=== PATIENT | female | born 1970 | race Caucasian/White ===

== ENCOUNTER → 2020-07-11 16:44 | Outpatient (CLI) | payer MEDICAID, SELFPAY ==
[2020-05-15 11:42] VITALS: BMI 37.1
[2020-07-11 18:37] LABS: Amphetamine Urine VISTA POSITIVE (<1000 ng/mL); Barbiturate Urine VISTA NEGATIVE (< 200 ng/mL); Benzodiazepine Urine VISTA NEGATIVE (< 200 ng/mL); Cocaine Urine VISTA NEGATIVE (< 300 ng/mL); Ecstacy Urine VISTA POSITIVE (< 500 ng/mL); Methadone Urine VISTA NEGATIVE (< 300 ng/mL); PCP Urine VISTA NEGATIVE (< 25 ng/mL); THC Urine VISTA NEGATIVE (< 50 ng/mL); Vista UDS pH Range 5
== END ==
PROVIDERS: PCP Student in an Organized Health Care Education/Training Program; Referring Provider Anesthesiology Pain Medicine; Visit Provider Anesthesiology Pain Medicine
DX: F11.20 Opioid dependence, uncomplicated (principal)
CPT/HCPCS: 80307

== ENCOUNTER → 2020-07-20 07:16 | Outpatient (CLI) | payer MEDICAID, SELFPAY ==
[2020-05-15 11:42] VITALS: BMI 37.1
--- NOTE | 2020-07-20 07:18 | MRI_ITS ---
STUDY: MRI LUMBAR SPINE WITHOUT CONTRAST REASON FOR EXAM: Female, 50 years old. Low back pain. TECHNIQUE: Standardized fat and water weighted pulse sequences were obtained in the sagittal and axial planes. COMPARISON: X-ray dated 07/03/2020 FINDINGS: Normal lumbar lordosis. There is mild levoscoliosis. Normal conus medullaris that terminates at the L1. L1-2: There is mild disc space narrowing and endplates spondylosis. There is mild disc bulge with small right paracentral protrusion without significant central canal or foraminal stenosis. L2-3: There is severe disc space narrowing and endplates spondylosis. Mild disc osteophyte complex and facet arthropathy asymmetric to the right with mild right foraminal stenosis. Mild central canal and minimal left foraminal stenosis. L3-4: There is mild disc space narrowing and endplates spondylosis. Mild disc bulge and moderate facet arthropathy without significant central canal or foraminal stenosis. L4-5: There is moderate disc space narrowing and endplates spondylosis. Moderate disc osteophyte complex and facet arthropathy asymmetric to the left with moderate left foraminal stenosis. Mild central canal and mild right foraminal stenosis. L5-S1: There is severe disc space narrowing and endplates spondylosis. Moderate disc osteophyte complex and mild facet arthropathy without significant central canal stenosis. Mild right and mild left foraminal stenosis. Normal visualized sacral ala. MRI/Spine Lumbar (Routine) IMPRESSION: L1/L2: Small right disc protrusion without significant central canal or foraminal stenosis. L4/L5: Moderate left foraminal stenosis. Electronically Signed: Kin French MD at 15:59 EST Tel , Service support ,
== END ==
PROVIDERS: PCP Student in an Organized Health Care Education/Training Program; Referring Provider Orthopaedic Surgery; Visit Provider Orthopaedic Surgery
DX: M54.16 Radiculopathy, lumbar region (principal); M48.061 Spinal stenosis, lumbar region without neurogenic claudication; M51.26 Other intervertebral disc displacement, lumbar region
CPT/HCPCS: 72148

== ENCOUNTER 2021-06-26 10:48 | Outpatient (CLI) | payer MEDICAID, SELFPAY ==
--- NOTE | 2021-06-26 10:50 | RAD_ITS ---
STUDY: X-RAY - LEFT SHOULDER REASON FOR EXAM: Female, 51 years old. pain TECHNIQUE: 5 view(s) of the shoulder. COMPARISON: None. FINDINGS: Normal glenohumeral articulation. Normal acromioclavicular joint. Normal acromion. Normal humeral head and visualized proximal humerus. There is periarticular soft tissue calcification consistent with a calcific tendinitis. Normal visualized pulmonary apex. RAD/Shoulder min 2 Views IMPRESSION: Hydroxyapatite deposition disease (calcific tendinitis) cyst. Electronically Signed: Clement Darling MD at 13:49 EST ,
== END 2021-06-26 23:59 | disposition short-term general hospital (02) ==
LOC: MTRAD 10:49
PROVIDERS: PCP Student in an Organized Health Care Education/Training Program; Referring Provider Physician Assistant; Visit Provider Physician Assistant
DX: M75.32 Calcific tendinitis of left shoulder (principal)
CPT/HCPCS: 73030

== ENCOUNTER 2021-08-11 14:33 | Outpatient (CLI) | payer MEDICAID, SELFPAY ==
[2021-08-11 18:10] LABS: CRP 5.92 mg/L (0.0-3.0); Rheumatoid Factor < 10.0 IU/mL (<15)
[2021-08-12 10:07] LABS: Erythrocyte Sedimentation Rate 46 mm/hr (0-30)
[2021-08-12 10:08] LABS: Absolute Lymphocyte Count 2.66 X10^3/uL (0.83-4.51); Absolute Neutrophil Count 7.6 X10^3/uL (2.0-7.7); Basophil# 0.05 X10^3/uL; Basophil% 0.4 % (0-1); Eosinophil# 0.25 X10^3/uL; Eosinophils% 2.2 % (0-5); Hematocrit 42.9 % (37-47); Hemoglobin 14.1 g/dL (12.0-15.0); Lymphocyte # 2.66 X10^3/ul (0.83-4.51); Lymphocyte % 23.5 % (19-41); Mean Corp Hgb Conc 32.9 g/dL (32-36); Mean Corpuscular Volume 88.1 fL (81-99); Mean Platelet Vol. 11.1 fl (6.2-12.0); Monocyte# 0.73 X10^3/uL; Monocyte% 6.5 % (0-10); NRBC Flagged by Analyzer 0 % (0-5); Neutrophil # 7.59 X10^3/uL (2.7-7.7); Neutrophil % 67.1 % (47-70); Platelet Count 433 K/mm3 (150-450); RBC Distribution Width CV 13.1 % (11.6-14.6); RBC Distribution Width SD 42.2 fl (35.1-43.9); Red Blood Count 4.87 M/mm3 (4.2-5.4); White Blood Count 11.3 K/mm3 (4.4-11.0)
[2021-08-13 16:12] LABS: ANTINUCLEAR ANTIBODIES DIRECT Negative (Negative)
[2021-08-14 08:22] LABS: CCP IgG Antibodies 9 units (0-19)
== END 2021-08-11 23:59 | disposition home or self-care (01) ==
LOC: MTLAB 14:34
PROVIDERS: PCP Student in an Organized Health Care Education/Training Program; Referring Provider Physician Assistant; Visit Provider Physician Assistant
DX: M75.32 Calcific tendinitis of left shoulder (principal); M25.512 Pain in left shoulder
CPT/HCPCS: 36415; 85025; 85652; 86038; 86140; 86200; 86431

== ENCOUNTER 2021-10-16 11:50 | Day surgery (SDC) | payer MEDICAID, SELFPAY ==
[2021-10-16] VITALS (7 sets, daily range): BP systolic 104–135; BP diastolic 70–88; PULSE 89–108; RESP 16–18; TEMP 36.1–37.1; O2SAT 96–100; BMI 37.0
[2021-10-16 12:15] LABS: Internal QC Validated? YES +Cl - CLEAR BKGD
[2021-10-16 12:18] LABS: Pregnancy, Urine Negative Negative
[2021-10-16 12:34] LABS: Hematocrit 42.2 % (37-47); Hemoglobin 13.4 g/dL (12.0-15.0); Mean Corp Hgb Conc 31.8 g/dL (32-36); Mean Corpuscular Hgb 28.2 pg (27.0-32.0); Mean Corpuscular Volume 88.7 fL (81-99); Mean Platelet Vol. 9.1 fl (6.2-12.0); Platelet Count 471 K/mm3 (150-450); RBC Distribution Width SD 42.3 fl (35.1-43.9); Red Blood Count 4.76 M/mm3 (4.2-5.4); White Blood Count 9.8 K/mm3 (4.4-11.0)
[2021-10-16] MEDS: Lactated Ringers 1,000 ML 15 ML IV (12:41)
--- NOTE | 2021-10-16 12:50 | EMB_PTH ---
PATIENT: FLO GERARD LOC: [facility] – [place] U#:[id number] AGE/SX: 51/F ROOM: RE10/16/[address]: Dr. Blanche Flores DO : 1970 BED: DIS: 10/16/2021 SPEC #: [id number] RECD: 10/16/21 15:01 STATUS: GEORGETTE DAVE #: [id number] NURIA: 10/16/21 12:[address]: Blanche Flores DEPT: SURGICAL PATHOLOGY RECD BY: Tony Pruett ENTERED: 10/17/21 07:59 SP TYPE: ENDOM BX/C OT DR: Dr. Donavan Lopes DO Tissues: A - Uterine cervix, NOS B - Endometrium, NOS Procedures: Surgery Specimen Level IV HEADER OPERATION: Cervical cone knife conization with endocervical curettage PRE-OP DIAGNOSIS: High-grade cervical dysplasia TISSUE SUBMITTED: A ? Cervical biopsy, tagged at 12 o?clock, B ? Endocervical curettings MICROSCOPIC DIAGNOSIS A. Cervix, cone biopsy: Focal minimal changes suspicious for HPV cytopathic effects. Resection margins are free of dysplastic changes. B. Endocervical curettings: Scant fragments of benign endocervical epithelium with focal decidual changes, negative for dysplasia. SJ:rg 10/20/2021 COMMENT Clinical correlation and appropriate follow up are necessary. Case has been reviewed in consultation with Dr. Casillas who concurs with the above diagnosis. IDC:AM MICROSCOPIC DESCRIPTION Slides are reviewed. GROSS DESCRIPTION A - Received in fixative is one container labeled with the patient's name and designated cervix biopsy, tagged at 12 o'clock. The specimen consists of a C-shaped fragment of mucosa measuring 2.5 x 2 x 0.6 cm. The specimen is inked as follows: 12 to 3 o'clock - yellow, 3 to 6 o'clock - green and 6 to 9 o'clock - blue. The specimen is serially sectioned and totally submitted in two cassettes. B - Received in fixative is one container labeled with the patient's name and designated endocervical curettings. The specimen consists of multiple irregular and mucoid fragments of light bolivar tissue that in aggregate measure 1 x 0.5 x <0.1 cm. The specimen is totally submitted in one cassette. / AM:abimael 10/17/2021 TC:5 CPT: 07451 x2
[2021-10-16] MEDS: Iodine/Potassium Iodide 14ML Bottle 1 DRP TOPICAL (13:33)
[2021-10-16] MEDS: Lidocaine 1% /Epi 1:100 (20ml) 20 ML Vial (13:57)
[2021-10-16] MEDS: FERRIC SUBSULFATE 8 GM SOLN (14:11)
--- NOTE | 2021-10-16 14:37 | PCM.DC ---
Discharge Instructions Diet Discharge Diet: No restrictions Activity Discharge Activity: May Not Drive (for 24 hours after surgery) May resume sexual activity in: 4 weeks (no intercourse, tampons, hot tubs, baths, or pools for 4 weeks) Weight Bearing Status: Weight bearing as tolerated Lifting Restrictions: none Dressing / Incision Call your doctor if you observe: Fever of 101 or Higher, Coldness, Increased Pain, Numbness or Tingling, Change in Color, Inability to urinate, Inability to have a bowel movement, Using more than 1 pad per hour, Shortness of breath, Dizziness, Fainting spells, Swelling in the ankles, Chest pain, Increased palpitations (irregular heartbeat), Calf discomfort and Uncontrolled pain Additional Dressing/Incision Instructions:: You will have cramping and vaginal bleeding. You will notice black-brown thick pieces of discharge and that is normal. Take Tylenol and Ibuprofen as needed for pain. Use a heating pad as needed. Follow Up Care Please Follow Up With: Blanche Flores DO When: 1 week Test Results: Test results from this visit will be discussed in further detail at your follow-up appointment, if applicable. Discharge Plan Admission Primary Reason for Your Visit: surgery Attending Provider: Blanche Flores Primary Care Provider: Donavan Lopes Discharge Orders/Prescriptions Prescriptions: Continued bupropion HCl 300 mg tablet extended release 24 hr 300 mg PO QAM RF: 0 lorazepam 0.5 mg tablet 1 mg PO DAILY PRN (Reason: Anxiety) RF: 0 dextroamphetamine-amphetamine 30 mg capsule,extended release 24hr 30 mg PO DAILY RF: 0 spironolactone 50 mg tablet 50 mg PO BID RF: 0 duloxetine 60 mg capsule,delayed release(DR/EC) 60 mg PO DAILY RF: 0 topiramate 25 mg tablet 25 mg PO BID RF: 0 pantoprazole 40 mg tablet,delayed release (DR/EC) 40 mg PO BID RF: 0 cholecalciferol (vitamin D3) [Vitamin D3] 125 mcg (5,000 unit) Tablet 125 mcg PO DAILY RF: 0 Referrals / Follow Up: Donavan Lopes DO [Primary Care Provider] - Disposition Disposition (needs filled in before D/C Order can be placed): Home, Self Care
--- NOTE | 2021-10-16 14:53 | OP.PCM_ITS ---
Problems Associated Problem List Diagnoses (1) High grade squamous intraepithelial cervical dysplasia: (2) Positive test for human papillomavirus (HPV): Report of Operation Date of Procedure: 10/16/21 Pre-Operative Diagnosis: CIN2 Post-Operative Diagnosis: CIN2 Surgery/Procedure Performed:: Cervical cold knife conization and endocervical curettings Description of Surgical Findings:: Normal appearing cervix. Uterus anteverted. Minimal descent of uterus and cervix Surgeon: Blanche Flores Type of Anesthesia: MAC Special Medications: Surgicel Specimen's removed: Cervical cone biopsy and endocervical curettings Drains: None Estimated Blood Loss (mL): 50 Fluids Replaced: 1000 cc Description of Procedure: Indications: Pt is done childbearing and colposcopy shows CIN2. She desires treatment. She also requests to leave IUD in place and understands the strings will likely be shortened and subsequently lost, and that can make IUD removal later more difficult Procedure: The patient was taken to the operating room where MAC anesthesia was found to be adequate. She was prepped and draped in the dorsal lithotomy position using yellowfin stirrups. A weighted speculum was placed in the vagina to expose the cervix. A single-tooth tenaculum was placed on the anterior lip of the cervix for traction. Angle stitches of 0 Vicryl sutures were placed at the 3:00 and 9 o'clock position in the lateral vaginal fornices. The cervix was stained with Lugol's iodine solution. A scalpel was then used to excise a cone- shaped biopsy circumferentially around the cervical os. The specimen was removed intact and marked at the 12 o'clock position with a suture. A curette was used to obtain endocervical curettings. A rollerball was used to cauterize the cone biopsy site. A 3-0 Vicryl suture was used to place a [id number] along the posterior aspect of the cone biopsy site as it was bleeding. There was still slight bleeding noted so Surgicel was placed in the cervical cone biopsy site, as well as Monsels. Bleeding was hemostatic. Instrument, sponge, needle counts were correct and the patient was taken to the recovery room in stable condition. Grafts/Implants Used: None Procedure Start Time: 13:57 Procedure Stop Time: 14:31 Complications None Admit VTE Documentation VTE Present on Admission: No VTE Mechan Device Prophylaxis: SCD's
== END 2021-10-16 15:50 | disposition home or self-care (01) ==
LOC: SDC 11:52 → AC 11:53
PROVIDERS: PCP Student in an Organized Health Care Education/Training Program; Referring Provider Obstetrics & Gynecology; Visit Provider Obstetrics & Gynecology
PROC: 0UBC7ZZ Excision of Cervix, Via Natural or Artificial Opening (ICD-10-PCS; CPT 57522; principal; 2021-10-16 12:35)
DX: N87.1 Moderate cervical dysplasia (principal); R87.810 Cervical high risk human papillomavirus (HPV) DNA test positive; E66.9 Obesity, unspecified; K21.9 Gastro-esophageal reflux disease without esophagitis; F32.A Depression, unspecified; F41.9 Anxiety disorder, unspecified; F17.290 Nicotine dependence, other tobacco product, uncomplicated; Z97.5 Presence of (intrauterine) contraceptive device; Z68.37 Body mass index [BMI] 37.0-37.9, adult; Z79.899 Other long term (current) drug therapy
CPT/HCPCS: 57520; 00940; 81025; 85027; 86850; 86900; 86901; 88305; J7120; J2405

== ENCOUNTER → 2022-02-26 | Outpatient (CLI) | payer MEDICAID, SELFPAY ==
--- NOTE | 2022-02-26 14:25 | RAD_ITS ---
STUDY: X-RAY - LUMBAR SPINE REASON FOR EXAM: Female, 52 years old. M50.50/M51.36 TECHNIQUE: 2 view(s) of the lumbar spine were obtained. COMPARISON: 07/03/2020 FINDINGS: Normal lumbar lordosis. Similar appearance of mild levoscoliosis centered on L3-4. Slight degenerative L3-4 retrolisthesis redemonstrated. There is multilevel endplate spondylosis of the lumbar vertebrae. There is multi-level degenerative disc disease with multi-level disc space narrowing. Intrauterine device in place. RAD/Lumbar Spine 2 or 3 Views IMPRESSION: Similar lumbar spine degenerative change and levoscoliosis. Electronically Signed: Kiko Benites MD at 3:46 EDT ,
--- NOTE | 2022-02-26 14:25 | RAD_ITS ---
STUDY: X-RAY - CERVICAL SPINE REASON FOR EXAM: Female, 52 years old. M50.50/M51.36 TECHNIQUE: 3 view(s) of the cervical spine were obtained. COMPARISON: None FINDINGS: Normal anterior atlantoaxial articulation. Normal odontoid process. Decreased cervical lordosis. Grade 1 retrolisthesis of C5-6. There is narrowing of C5-6 disc space and multilevel endplate spurring. The soft tissue structures are unremarkable. RAD/Cerv Spine 2 or 3 Views IMPRESSION: Mild spondylosis most severe at C5-6. No acute fracture or other significant abnormality. Electronically Signed: Farshad Savage MD at 22:53 EDT ,
== END | disposition home or self-care (01) ==
LOC: RAD 14:18
PROVIDERS: PCP Student in an Organized Health Care Education/Training Program; Referring Provider Anesthesiology Pain Medicine; Visit Provider Anesthesiology Pain Medicine
DX: M50.30 Other cervical disc degeneration, unspecified cervical region (principal); M47.812 Spondylosis without myelopathy or radiculopathy, cervical region; M51.36 Other intervertebral disc degeneration, lumbar region
CPT/HCPCS: 72040; 72100

== ENCOUNTER → 2023-01-07 | Outpatient (CLI) | payer MEDICAID, SELFPAY ==
--- NOTE | 2023-01-07 14:34 | RAD_ITS ---
STUDY: X-RAY - CERVICAL SPINE REASON FOR EXAM: Female, 52 years old. DDD TECHNIQUE: 3 view(s) of the cervical spine were obtained. COMPARISON: None FINDINGS: Normal anterior atlantoaxial articulation. Normal odontoid process. Straightening of normal lordotic curvature possibly due to muscle spasm. No evidence for acute fracture or subluxation. Mild narrowing of C5-6 and C6-7 disc spaces. There is spurring of the anterior endplates at C3-4, C4-5 and C5-6. The soft tissue structures are unremarkable. RAD/Cerv Spine 2 or 3 Views IMPRESSION: Moderate spondylosis. No acute fracture or other significant bony pathology Electronically Signed: Farshad Savage MD at 22:58 EDT ,
== END | disposition home or self-care (01) ==
LOC: RAD 14:32
PROVIDERS: PCP Student in an Organized Health Care Education/Training Program; Referring Provider Anesthesiology Pain Medicine; Visit Provider Anesthesiology Pain Medicine
DX: M50.30 Other cervical disc degeneration, unspecified cervical region (principal); M47.812 Spondylosis without myelopathy or radiculopathy, cervical region; M48.02 Spinal stenosis, cervical region
CPT/HCPCS: 72040

== ENCOUNTER 2023-11-15 20:45 | Emergency (ER) | payer MEDICAID, SELFPAY ==
[2023-11-15 20:45] VITALS: BP 117/66; PULSE 83; RESP 16; TEMP 36.8; O2SAT 98; BMI 23.2
[2023-11-15 21:22] VITALS: BP 117/82; PULSE 81; RESP 18; TEMP 36.8; O2SAT 98
[2023-11-15 22:00] VITALS: BP 118/80; PULSE 81; RESP 18; TEMP 36.8; O2SAT 99
--- NOTE | 2023-11-15 22:13 | CT_ITS ---
EXAM: CT LEFT LOWER EXTREMITY WITH INTRAVENOUS CONTRAST CLINICAL INDICATION: infection TECHNIQUE: Helically acquired images were obtained of the left lower extremity with intravenous contrast. 2-D reformats were performed by the technologist. This CT exam was performed using one or more of the following dose reduction techniques: automated exposure control, adjustment of the mA and/or kV according to patient size, and/or use of iterative reconstruction technique. CONTRAST: 100ml Isoview 370 COMPARISON: No relevant prior studies available. FINDINGS: BONES/JOINTS: Mild hindfoot and midfoot arthrosis. Calcaneal spurs. No acute fracture. No subluxation. Normal alignment. Preservation of the joint space. SOFT TISSUES: Within the Achilles tendon and adjacent soft tissues, there is a 2.2 x 2.3 x 3.2 cm Low-attenuation peripherally enhancing fluid collection consistent with an abscess. Associated likely dystrophic calcifications may be secondary to chronic tendinopathy or other dystrophic soft tissue calcifications. Marked thickening of the more proximal Achilles tendon is present suggesting severe tendinopathy. Diffuse additional soft tissue swelling/edema suggestive of potentially cellulitis. Strandy opacities within the distal soleus and gastrocnemius suggesting myositis. No radiopaque foreign body. myositis. No radiopaque foreign body. CT/Extremity Lower WITH Contrast IMPRESSION: Abscess of the Achilles tendon and surrounding soft tissues with additional tendinopathy and likely myositis at the myotendinous junction. Additional likely cellulitis. Electronically Signed: Goyo Iqbal DO at 23:12 EDT ,
--- NOTE | 2023-11-15 22:16 | EDS_ITS ---
HPI History of Present Illness Chief Complaint: Wound Check Informant: patient Narrative Narrative: 53-year-old female presenting to the emergency room out of concern for left ankle infection. Patient states on 12 October she underwent left Achilles tendon repair with Dr. Gomez at [facility]. She states that about a week ago the stitches opened up while she was getting out of the shower and her foot went into dorsiflexion. She states that she went to see Dr. Gomez and was placed on doxycycline. She has a history of MRSA. She states that she called the office today and was referred to the wound clinic. She denies any fevers but notes swelling pain and redness to the left posterior ankle. She states that she came here tonight because she was referred to the wound clinic. She has still been wearing her boot and using crutches. [facility] Medical History Wears glasses History of Mohs micrographic surgery for skin cancer Cancer Depression Anxiety Diabetes Arthritis Fatty liver Restless legs Injury of head and neck Back pain History of ulceration History of IBS Gastric reflux Prince esophagus Vapes nicotine containing substance Smoker Shortness of breath on exertion History of pain when walking History of echocardiogram History of stress test Encounter for insertion of mirena IUD bladder sling H/O methicillin resistant Staphylococcus aureus infection Home Medications ?Medication ?Instructions ?Recorded ?Last Taken ?Type bupropion HCl 300 mg 24 hr tablet, 300 mg PO QAM 05/15/20 10/16/21 10:15 History extended release dextroamphetamine-amphetamine ER 30 mg PO DAILY 05/15/20 Unknown History 30 mg 24hr capsule,extend release duloxetine 60 mg capsule,delayed 60 mg PO DAILY 05/15/20 10/16/21 10:15 History release lorazepam 0.5 mg tablet 1 mg PO DAILY PRN Anxiety 05/15/20 10/16/21 10:15 History spironolactone 50 mg tablet 50 mg PO BID 05/15/20 10/16/21 10:15 History topiramate 25 mg tablet 25 mg PO BID 05/15/20 10/16/21 10:15 History pantoprazole 40 mg tablet,delayed 40 mg PO BID 01/09/21 10/16/21 10:15 History release cholecalciferol (vitamin D3) 125 125 mcg PO DAILY 10/14/21 Unknown History mcg (5,000 unit) tablet (Vitamin D3) lamotrigine 25 mg tablet (Lamictal) 25 mg PO DAILY 06/10/22 Unknown History gabapentin 300 mg capsule 300 mg PO 03/05/23 Unknown History oxycodone-acetaminophen 5 mg-325 1 tab PO Q6H PRN PRN Pain 3 days 11/15/23 Unknown Rx mg tablet #12 TABLETS sulfamethoxazole 800 1 tab PO BID #20 TABLETS 11/15/23 Unknown Rx mg-trimethoprim 160 mg tablet Allergy/AdvReac Type Severity Reaction Status Date / Time No Known Allergies Allergy Verified 11/15/23 20:47 Family History Mother Diabetes Father MVP (mitral valve prolapse) Grandmother Cancer Surgical History Hx of gastric bypass Hx of hernia repair Hx of esophagogastroduodenoscopy History of cholecystectomy History of tonsillectomy Social History household members: spouse and children housing: house Smoking Status: Current some day smoker tobacco type: cigarettes and smokeless tobacco what type of physical activity do you participate in: none do you feel safe at home: Yes ROS ROS ED Constitutional Constitutional ED: Denies chills, fever(s) or weight loss Eyes Eyes: Denies change in vision or diplopia ENT ENT ED: Denies ear pain, rhinorrhea or sore throat Cardiovascular Cardiovascular: Denies chest pain, orthopnea, palpitations or racing heartbeat Respiratory/Chest Respiratory/Chest: Denies cough, dyspnea or orthopnea Gastrointestinal Gastrointestinal: Denies abdominal pain, diarrhea, nausea or vomiting Genitourinary Genitourinary ED: Denies dysuria, hematuria or urinary frequency Musculoskeletal Musculoskeletal: Reports other Details: See history of present illness ; Denies arthralgias or myalgias Integumentary Denies abscess or rash Neurologic Neurologic: Denies headache(s) or weakness Psychiatric Psychiatric: Denies anxiety, depression, suicidal ideation or suicidal thoughts Endocrine Endocrinology: Denies polydipsia, polyphagia or polyuria Allergic/Immunologic Allergic/Immunologic ED: Denies mouth swelling, tongue swelling or urticaria EXAM Physical Exam Const Vital Signs: 11/15/23 20:45 11/15/23 21:22 11/15/23 22:00 Temperature 98.3 F 98.3 F 98.2 F Temperature Source Temporal Oral Oral Pulse Rate 83 81 81 Respiratory Rate 16 18 18 Blood Pressure 117/66 117/82 H 118/80 Blood Pressure Mean 83 93 92 Pulse Ox 98 98 99 Oxygen Delivery Method Room Air Room Air Room Air 11/15/23 23:00 Temperature 98.3 F Temperature Source Oral Pulse Rate 72 Respiratory Rate 16 Blood Pressure 98/59 L Blood Pressure Mean 72 Pulse Ox 98 Oxygen Delivery Method Room Air Positive well nourished and well developed General Appearance ED: well developed HEENT Reports normocephalic, head/scalp atraumatic and moist mucous membranes Eyes PERRL and EOMs intact bilaterally Neck no lymphadenopathy, supple and no JVD Resp normal respiratory effort and clear to auscultation bilaterally Cardio regular rate, regular rhythm and no murmurs GI normal to inspection, nondistended, normoactive bowel sounds and non-tender Palpation: soft Back/Spine no CVA tenderness and normal ROM Extremity Extremity Narrative: Left Achilles region demonstrates a 2.5 cm area of wound dehiscence. There is a piece of surgical stitching coming from the wound. There is surrounding erythema warmth and swelling. The calf itself is not particularly swollen or tender. There is no lymphangitic streaking. No palpable cords. The toes appear normal. General Extremety ED: Negative for edema General Extremity: Negative for edema Neuro oriented x3 and CN's II-XII intact bilaterally Sensorium / Orientation: alert Motor Exam: strength 5/5 throughout Psych mental status grossly normal Mood & Affect: Negative for depressed or tearful Skin no rashes or lesions noted and no wounds MDM MDM MDM Narrative Medical decision making narrative: Differential diagnosis includes cellulitis tendon rupture postoperative abscess seroma DVT White count 9.6 with normal differential creatinine 0.9 with a BUN of 21 liver enzymes are normal except for an alkaline phosphatase of 195. CT of the extremity with contrast was obtained which demonstrates a abscess of the Achilles tendon and adjacent soft tissue blister arises at the level of the surgical dehiscence. I spoke with her surgeon Dr. Gomez. We have changed her to Bactrim. I did give her a copy of her CT to take to the office tomorrow. Given the location of the abscess at the surgical site I am uncomfortable draining it here in the emergency department. She does not appear septic. I will give her pain medication and antibiotic here. History & Record Review Discussion w/independent historian: Patient Lab Data Attestation: I reviewed the patient's lab results. Labs: Laboratory Results - last 24 hr 11/15/23 21:30 WBC 9.6 RBC 4.02 L Hgb 11.8 L Hct 37.0 MCV 92.0 MCH 29.4 MCHC 31.9 L RDW Std Deviation 44.5 H RDW Coeff of Reinaldo 13.2 Plt Count 389 MPV 10.4 Immature Gran % (Auto) 0.300 Neut % (Auto) 54.7 Lymph % (Auto) 33.9 Parke % (Auto) 7.2 Eos % (Auto) 3.5 Baso % (Auto) 0.4 Absolute Neuts (auto) 5.2 Absolute Lymphs (auto) 3.24 Nucleated RBC % 0 Sodium 138 Potassium 4.3 Chloride 106 Carbon Dioxide 27.0 Anion Gap 5 BUN 21 H Creatinine 0.90 Estim Creat Clear Calc 69.23 Est GFR (MDRD) Af Amer 84 Est GFR (MDRD) Non-Af 70 BUN/Creatinine Ratio 23.3 H Glucose 81 Calcium 9.0 Total Bilirubin 0.20 AST 17 ALT 37 Alkaline Phosphatase 195 H Total Protein 6.8 Albumin 3.3 Globulin 3.5 Albumin/Globulin Ratio 0.9 Radiography Diagnostic Testing: Clinical Impression(s) from Imaging Studies Lower Extremity CT 11/15/23 22:13 IMPRESSION: Abscess of the Achilles tendon and surrounding soft tissues with additional tendinopathy and likely myositis at the myotendinous junction. Additional likely cellulitis. Electronically Signed: Goyo Iqbal DO at 23:12 EDT , Discharge Plan Triage Chief Complaint: Wound Check ED Provider: Obinna Beauchamp Dx/Rx/DC Orders Clinical Impression: Postoperative abscess, Acute ankle pain Instructions: ED Wound Infection after surgery Prescriptions: New sulfamethoxazole-trimethoprim 800-160 mg tablet 1 tab PO BID Qty: 20 0RF oxycodone-acetaminophen 5-325 mg tablet 1 tab PO Q6H PRN PRN (Reason: Pain) 3 Days Qty: 12 0RF No Action bupropion HCl 300 mg tablet extended release 24 hr 300 mg PO QAM lorazepam 0.5 mg tablet 1 mg PO DAILY PRN (Reason: Anxiety) Patient Comments: take 1/2 to 1 tablet by mouth once daily if needed for ANXIETY ATTACKS dextroamphetamine-amphetamine 30 mg capsule,extended release 24hr 30 mg PO DAILY Patient Comments: take 1 capsule by mouth once daily for 30 DAYS spironolactone 50 mg tablet 50 mg PO BID duloxetine 60 mg capsule,delayed release(DR/EC) 60 mg PO DAILY Patient Comments: TAKE 1 CAPSULE BY MOUTH EVERY DAY topiramate 25 mg tablet 25 mg PO BID Patient Comments: take 1 tablet by mouth twice a day pantoprazole 40 mg tablet,delayed release (DR/EC) 40 mg PO BID Patient Comments: take 1 tablet by mouth daily 1/2 HOUR BEFORE MEALS AND TAKE ON AN EMPTY STOMACH lamotrigine [Lamictal] 25 mg tablet 25 mg PO DAILY gabapentin 300 mg capsule 300 mg PO Patient Comments: take 1 capsule by mouth three times a day for 30 DAYS cholecalciferol (vitamin D3) [Vitamin D3] 125 mcg (5,000 unit) Tablet 125 mcg PO DAILY Primary Care Provider: Donavan Lopes Referrals: Donavan Lopes DO [Primary Care Provider] - Gino Gomez DPM [Med Staff - Courtesy Staff] - 1 Day Activity Restrictions/Additional Instructions: You need to call the office tomorrow. They need to see you tomorrow. Please take a copy of your disc with you. You may discontinue the doxycycline and begin Bactrim. Print Language: Fijian Disposition Disposition: Home, Self Care
[2023-11-15 22:29] LABS: Absolute Lymphocyte Count 3.24 X10^3/uL (0.83-4.51); Absolute Neutrophil Count 5.2 X10^3/uL (2.0-7.7); Basophil# 0.04 X10^3/uL; Basophil% 0.4 % (0-1); Eosinophil# 0.33 X10^3/uL; Eosinophils% 3.5 % (0-5); Hemoglobin 11.8 g/dL (12.0-15.0); Lymphocyte # 3.24 X10^3/ul (0.83-4.51); Lymphocyte % 33.9 % (19-41); Mean Corp Hgb Conc 31.9 g/dL (32-36); Mean Corpuscular Hgb 29.4 pg (27.0-32.0); Mean Platelet Vol. 10.4 fl (6.2-12.0); Monocyte# 0.69 X10^3/uL; Monocyte% 7.2 % (0-10); NRBC Flagged by Analyzer 0 % (0-5); Neutrophil # 5.23 X10^3/uL (2.7-7.7); Neutrophil % 54.7 % (47-70); Platelet Count 389 K/mm3 (150-450); RBC Distribution Width CV 13.2 % (11.6-14.6); RBC Distribution Width SD 44.5 fl (35.1-43.9); Red Blood Count 4.02 M/mm3 (4.2-5.4); White Blood Count 9.6 K/mm3 (4.4-11.0)
[2023-11-15 22:46] LABS: ALB/GLOB Ratio 0.9 RATIO (0.9-2.4); AST(SGOT) 17 U/L (15-37); Alanine Aminotransfer ALT/SGPT 37 U/L (13-56); Albumin, Serum 3.3 g/dL (3.2-5.0); Alkaline Phosphatase 195 U/L (45-117); Anion Gap 5 (5-15); BUN 21 mg/dL (7-18); BUN/Creat Ratio 23.3 RATIO (10-20); Chloride 106 mmol/L (98-107); EST Glomerular Filtration Rate 70 mL/min (>60); Est Glom Filt Rate - Afr Amer 84 mL/min (>60); Estimated Creatinine Clearance 69.23 ml/min; Globulin 3.5 g/dL (2.2-4.2); Glucose 81 mg/dL (74-106); Potassium 4.3 mmol/L (3.5-5.1); Protein, Total 6.8 g/dL (6.4-8.2); Sodium Level 138 mmol/L (136-145)
[2023-11-15 23:00] VITALS: BP 98/59; PULSE 72; RESP 16; TEMP 36.8; O2SAT 98
[2023-11-16] MEDS: Smz/Tmp Ds Tablet 1 TABLET PO (00:20)
[2023-11-16] MEDS: oxyCODONE 5 MG Tablet PO (00:21)
[2023-11-16 00:29] VITALS: BP 124/76; PULSE 72; RESP 18; TEMP 36.7; O2SAT 100
== END 2023-11-16 00:30 | disposition home or self-care (01) ==
PROVIDERS: Emergency Provider Emergency Medicine; PCP Student in an Organized Health Care Education/Training Program; Visit Provider Emergency Medicine
DX: L02.416 Cutaneous abscess of left lower limb (principal); E11.9 Type 2 diabetes mellitus without complications; M25.572 Pain in left ankle and joints of left foot
CPT/HCPCS: 73701; 80053; 85025; 99284; Q9967; A4216

== ENCOUNTER 2023-11-23 08:06 | Outpatient (RCR) | payer MEDICAID, SELFPAY ==
[2023-11-23 08:11] VITALS: BP 101/55; PULSE 79; RESP 18; TEMP 36.3; BMI 23.3
--- NOTE | 2023-11-23 10:26 | HP.PCM_ITS ---
History of Present Illness Date of Service: 11/23/23 Progress of Wound: 53-year-old female presents for left posterior Achilles wound in setting of recent percutaneous Achilles repair performed by Dr. Hernandez 6 weeks prior. Patient notes that she accidentally put her foot down when showering which led to a wound formation to the posterior heel when she was supposed to be maintaining a nonweightbearing status on her left lower extremity during her postoperative recovery. She has been dealing with this wound since the time of her surgery and notes that she is recently placed on oral Bactrim for concern for a left lower extremity abscess that was read on a recent emergency room visit CT scan. At current patient denies any pain at rest. She denies any fever chills chest pain calf pain shortness of breath. Patient denies any other complaints. [facility] Medical History Wears glasses History of Mohs micrographic surgery for skin cancer Cancer Depression Anxiety Diabetes Arthritis Fatty liver Restless legs Injury of head and neck Back pain History of ulceration History of IBS Gastric reflux Prince esophagus Vapes nicotine containing substance Smoker Shortness of breath on exertion History of pain when walking History of echocardiogram History of stress test Encounter for insertion of mirena IUD bladder sling H/O methicillin resistant Staphylococcus aureus infection Home Medications ?Medication ?Instructions ?Recorded ?Last Taken ?Type bupropion HCl 300 mg 24 hr tablet, 300 mg PO QAM 05/15/20 10/16/21 10:15 History extended release dextroamphetamine-amphetamine ER 30 mg PO DAILY 05/15/20 Unknown History 30 mg 24hr capsule,extend release lorazepam 0.5 mg tablet 1 mg PO DAILY PRN Anxiety 05/15/20 10/16/21 10:15 Histo ry spironolactone 50 mg tablet 50 mg PO BID 05/15/20 10/16/21 10:15 History cholecalciferol (vitamin D3) 125 125 mcg PO DAILY 10/14/21 Unknown History mcg (5,000 unit) tablet (Vitamin D3) lamotrigine 25 mg tablet (Lamictal) 25 mg PO DAILY 06/10/22 Unknown History sulfamethoxazole 800 1 tab PO BID #20 TABLETS 11/15/23 Unknown Rx mg-trimethoprim 160 mg tablet AdderalL 1XD 11/23/23 Unknown History Allergy/AdvReac Type Severity Reaction Status Date / Time No Known Allergies Allergy Verified 11/15/23 20:47 Family History Mother Diabetes Father MVP (mitral valve prolapse) Grandmother Cancer Surgical History Hx of gastric bypass Hx of hernia repair Hx of esophagogastroduodenoscopy History of cholecystectomy History of tonsillectomy Social History household members: spouse and children housing: house Smoking Status: Current some day smoker tobacco type: cigarettes and smokeless tobacco what type of physical activity do you participate in: none do you feel safe at home: Yes ROS Constitutional Constitutional: Denies body ache(s), change in weight or fever(s) Eyes Eyes: Denies acute decrease in peripheral vision, change in eye color or change in vision ENT HEENT: Denies abnormal hearing, bleeding gums or dysphagia Cardiovascular Cardiovascular: Denies abdominal bloating, abdominal edema or bluish discoloration of hand/feet Respiratory/Chest Respiratory/Chest: Denies change in mental status, change in phlegm color or difficulty clearing secretions Gastrointestinal Gastrointestinal: Denies anorexia, belching or coffee ground emesis Genitourinary Genitourinary: Denies abdominal discomfort, anuria or difficulty urinating Musculoskeletal Musculoskeletal: Denies arthralgias, atrophy or joint stiffness Vital Signs Vital Signs Vital Signs: 11/23/23 08:11 Temperature 97.4 F L Temperature Source Temporal Pulse Rate 79 Respiratory Rate 18 Blood Pressure 101/55 L Blood Pressure Mean 70 Blood Pressure Source Monitor Weight Weight: 65.529 kg Body Mass Index (BMI) 23.3 Physical Exam Narrative Vascular: Dorsalis pedis posterior tibial pulses 2 out of 4 to bilateral lower extremity. Skin well-hydrated, supple with normal texture and turgor. Digital hair growth noted. Capillary fill time less than 3 seconds to digits 1 through 5 bilaterally. No gross edema noted. Neurologic: Light touch protective sensation intact bilateral lower extremity. No evidence of Babinski or clonus. Dermatologic: Full-thickness wound to the posterior left Achilles. This wound extends down to the level of the Achilles. Pre and postdebridement measurements documented nursing notes. There is mild periwound erythema edema and warmth. There is scant drainage noted. Wound base demonstrates exposed Achilles tendon with fibronecrotic appearance. Musculoskeletal: Muscular strength diminished to left Achilles tendon to 4 out of 5. Achilles tendon does appear to remain intact at current. Patient has no pain with calf squeeze bilaterally. No gross deformity noted. Debridement Note Debridement Note Post-Debridement Measurements and Additional Note: Post-Debridement Measurements/Treatment WC - Nurse 1 - General Ulcer Assessment Start: 11/23/23 08:11 Freq: Status: Active Protocol: CLARA.LOWEXT Activity Type Activity Date Activity User E-sign Co-sign Detail Recorded Client Recorded Date Recorded By Document 11/23/23 08:11 DL [email or web address] 11/23/23 08:41 DL 11/23/23 08:11 WC - Today's Visit Information Type of service Initial Visit Arrival Mode Ambulatory, Crutches Transfer Assistance None Patient Identification Verified (Name & Yes ) Patient Requires Transmission-Based No Precautions Height and Weight Height 5 ft 6 in Weight 65.529 kg Weight in Pounds 144.5 lbs Body Mass Index (BMI) 23.3 BMI Classification Normal BSA - Mili 1.74 Vital Signs Temperature (97.8 F-99.1 F) 97.4 F L Temperature Source Temporal Pulse Rate (60-100) 79 Pulse Location Monitor Respiratory Rate (12-18) 18 Respiratory rate source Observation Blood Pressure (90/60-120/80) 101/55 L Blood Pressure Mean 70 Source Monitor History Since Last Visit- (Skip if this is Patient's initial visit) Left Footwear Removable Cast Walker/Walking Boot Right Footwear Regular Shoe Pain Scale: 0-10 Numeric Is Patient Pain Free? Yes Lower Extremity Assessment/ Foot Assessment/ Toe Nail Assessment Left -Popliteal Doppler Multiphasic -Posterior Tibial Doppler Multiphasic -Extremity Color Normal -Hair Growth on Legs No -Hair Growth on Toes No -Temperature of Extremity Warm -Dependent Rubor No -Blanched when Elevated No -Lipodermatosclerosis No -Other Deformity No -Prior Foot Ulcer No -Charcot Joint No -Prior Amputation No -Thick No -Discolored No -Deformed No -Improper Length & Hygeine No Right -Posterior Tibial Palpable Yes -Dorsalis Pedis Palpable Yes -Extremity Color Normal -Hair Growth on Legs No -Hair Growth on Toes No -Temperature of Extremity Warm -Capillary Refill Greater than 3 Seconds -Dependent Rubor No -Blanched when Elevated No -Lipodermatosclerosis No -Other Deformity No -Prior Foot Ulcer No -Charcot Joint No -Prior Amputation No -Thick No -Discolored No -Deformed No -Improper Length & Hygeine No Neuropathy Assessment Feet - Top Side and Bottom <Entered> (a) Communication Assessment Preferred language Greenlandic Able to Read Yes Able to Write Yes Communication Tools None Right Hearing Abillity Normal Left Hearing Abillity Normal Visual Assistive Devices Glasses Teaching Assessment Preferences Verbal,Written Barriers to Learning None Readiness To Learn Fair Willingness to Engage in Self Management Med Activies Readiness to Engage in Self Management Med Activities Anxiety Level Calm Cooperation Cooperative Perception Coherent Interest in Health Problem Asks Questions Education Importance Acknowledges Need Does Patient Smoke tobacco or other Yes substances Smoking Status Current some day smoker Is Patient Diabetic No Functional Assessment Recent Decline in Ability to Perform Denies Any Declines Culture/Synagogue/Accountant Certified Public Cultural/Synagogue Needs that may affect No Treatment Plan Would you allow our hospital manager continuous improvement to No meet you for the purpose of spiritual/ emotional support? Accountant Certified Public to contact place of methodist No Teaching: Wound Center Dressing Your Wound -Person Taught Patient *Welcome to the Wound Center -Person Taught Patient (a) 1 - + WC - Nurse 1 - General Ulcer Measurement Start: 11/23/23 08:11 Freq: Status: Active Protocol: Activity Type Activity Date Activity User E-sign Co-sign Detail Recorded Client Recorded Date Recorded By Document 11/23/23 08:11 DL [email or web address] 11/23/23 08:41 DL 11/23/23 08:11 Wound Center Nurse 1 #1 L Billie -Current Size (cm) - Length 1 -Current Size (cm) - Width 2 -Current Size (cm) - Depth 0.6 -Total Square Cm 2 -Photo Taken Yes -Classification - Thickness Full Thickness without Exposed Support Structure -Exudate Amt Medium -Exudate Type Serosanguineous -Wound Margin Distinct, Outline Attached -Granulation Amt None Present (0 %) -Necrosis Amt Large (67-100%) -Necrotic Tissue Type Adherent Slough -Structure Exposed N/A -Texture (Mica-wound Skin Appearance) Localized Edema ,Scarring -Moisture (Mica-wound Skin Appearance) Maceration -Color (Mica-wound Skin Appearance) Erythema -Temperature (Mica-wound Skin No Abnormality Appearance) (Pt Warm) -Tenderness on Palpation (Mica-wound No Skin Appearance) -Ulcer Cleansing Soap and Water -Foul Odor after Cleansing No -Anesthetic Used 5% Lidocaine Gel CLARA - Nurse 2 - General Ulcer CM Notes Start: 11/23/23 08:11 Freq: Status: Active Protocol: Activity Type Activity Date Activity User E-sign Co-sign Detail Recorded Client Recorded Date Recorded By Document 11/23/23 09:08 JF 0000 11/23/23 09:23 JF 11/23/23 09:08 Wound Center Nurse 2 -Time 09:09 -Correct Patient Yes -Correct Side, Site, Position Yes -Correct Procedure Yes -Procedure Performed Yes -Type of Procedure Debridement -Clinical Debridement Muscle / Fascia -Tissue Removed Tendon -Post Debridement (cm) - Length 1.0 -Post Debridement (cm) - Width 1.7 -Post Debridement (cm) - Depth 0.8 -Total Square (Post) (cm) 1.70 -Area of Debridement (cm) - Length 1.0 -Area of Debridement (cm) - Width 1.7 -Total Square (Area) (cm) 1.70 -Tunneling No -Undermining/Tunneling No -Circular Undermining No -Wound/Ulcer Outcome Not Healed -Ulcer Cleansing Rinsed/ Irrigated with Saline -Foul Odor after Cleansing No -Bioengineered Tissue No -Bleeding Controlled with Pressure -Treatment Response Procedure Tolerated Well -Offloading No -Type of Offloading Camwalker -Debridement - Muscle / Fascia, 1st Yes 20sq cm Pain Scale: 0-10 Numeric Is Patient Pain Free? Yes - Nurse 3 - General Ulcer D/C NN Start: 11/23/23 08:11 Freq: Status: Active Protocol: Activity Type Activity Date Activity User E-sign Co-sign Detail Recorded Client Recorded Date Recorded By Document 11/23/23 09:57 RB wound 11/23/23 09:59 RB 11/23/23 09:57 Wound Care Center Nurse 3 #1 L Achillees -Primary Dressing Applied Hysept ($), Mepilex Border -Other Dressing dakins moistened gauze betadine to periulcer -Primary Dressing Covered/Secured with Dry Gauze, Secured with Tape -Mepilex Border 1 Left -Tubular Bandage Double Layer -Size of Tubigrip Used Size D -Size D ($) 2 Treatment Response Procedure Tolerated Well Pain Scale: 0-10 Numeric Is Patient Pain Free? Yes Teaching: Wound Center Compression Wraps & Stockings -Person Taught Patient -Teaching Method Discussion, Demonstration -Response to teaching Verbalize understanding Dressing Your Wound -Person Taught Patient -Teaching Method Discussion, Demonstration -Response to teaching Verbalize understanding WC - Visit Discharge Discharge Condition Stable Ambulatory Status Ambulatory, Crutches Transportation Private Auto Medication Reconcilliation completed & No provided to patient/care provider Clinical Summary of Care Provided Yes Assessment/Plan Assessment/Plan (1) Left ankle pain: CODE(S): M25.572 - Pain in left ankle and joints of left foot QUALIFIERS: Chronicity: acute Qualified Code(s): M25.572 - Pain in left ankle and joints of left foot PLAN: Exam performed. Reviewed prior notes per Dr. Avila. Wound to posterior left Achilles with exposed Achilles tendon noted. Concern for superficial infection noted. Left posterior ankle wound was debrided excisionally down to and including level of Achilles tendon using combination of 15 blade and pickups as well as a 7 mm dermal curette. All nonviable tissue was removed. Topical anesthesia was used. Pre and postdebridement measurements documented nursing notes. Patient tolerated procedure well. Wound was flushed and tissue specifically Achilles tendon was sent for culture. Patient currently is on Bactrim double strength, will continue this and follow the culture and sensitivity. Patient will dress wound daily with Dakin's wet to dry dry sterile dressing and a Tubigrip. Patient will continue nonweightbearing to left lower extremity assisted by crutches and Cam boot. Patient to take 81 mg aspirin daily for DVT prophylaxis. Follow-up in 1 week, consider total contact casting. (2) Non-pressure chronic ulcer of left ankle with necrosis of muscle: CODE(S): L97.323 - Non-pressure chronic ulcer of left ankle with necrosis of muscle
== END 2023-11-28 23:59 | disposition home or self-care (01) ==
LOC: WC 08:06
PROVIDERS: PCP Student in an Organized Health Care Education/Training Program; Referring Provider Podiatrist Foot & Ankle Surgery; Visit Provider Podiatrist
DX: E11.622 Type 2 diabetes mellitus with other skin ulcer (principal); L97.323 Non-pressure chronic ulcer of left ankle with necrosis of muscle; E11.40 Type 2 diabetes mellitus with diabetic neuropathy, unspecified; F17.210 Nicotine dependence, cigarettes, uncomplicated; F17.220 Nicotine dependence, chewing tobacco, uncomplicated; Z98.84 Bariatric surgery status; Z79.899 Other long term (current) drug therapy; K21.9 Gastro-esophageal reflux disease without esophagitis
CPT/HCPCS: 11043; 87070; 87075; 87077; 87186; 87205; 99214; G0463

== ENCOUNTER 2023-12-28 11:30 | Outpatient (RCR) | payer MEDICAID, SELFPAY ==
[2023-11-29 00:26] VITALS: BP 101/55; PULSE 79; RESP 18; TEMP 36.3; BMI 23.3
[2023-11-30 09:46] VITALS: BP 103/59; PULSE 89; RESP 16; TEMP 36.1; BMI 23.3
--- NOTE | 2023-11-30 10:33 | PN.PCM_ITS ---
History of Present Illness Date of Service: 11/23/23 Progress of Wound: 53-year-old female presents for left posterior Achilles wound in setting of recent percutaneous Achilles repair performed by Dr. Hernandez 7 weeks prior. Patient notes that she accidentally put her foot down when showering which led to a wound formation to the posterior heel when she was supposed to be maintaining a nonweightbearing status on her left lower extremity during her postoperative recovery. She has been dealing with this wound since the time of her surgery and notes that she is recently placed on oral Bactrim for concern for a left lower extremity abscess that was read on a recent emergency room visit CT scan. At current patient denies any pain at rest. She denies any fever chills chest pain calf pain shortness of breath. Patient denies any other complaints. Objective Data Objective Data Vital Signs: Vital Signs Temp Pulse Resp BP O2 Del Method 97 F L 89 16 103/59 L Room Air 11/30/23 09:46 11/30/23 09:46 11/30/23 09:46 11/30/23 09:46 11/30/23 09:46 Oxygen Delivery Method Room Air Weight: 65.529 kg Body Mass Index (BMI) 23.3 Physical Exam Narrative Vascular: Dorsalis pedis posterior tibial pulses 2 out of 4 to bilateral lower extremity. Skin well-hydrated, supple with normal texture and turgor. Digital hair growth noted. Capillary fill time less than 3 seconds to digits 1 through 5 bilaterally. No gross edema noted. Neurologic: Light touch protective sensation intact bilateral lower extremity. No evidence of Babinski or clonus. Dermatologic: Full-thickness wound to the posterior left Achilles. This wound extends down to the level of the Achilles. Pre and postdebridement measurements documented nursing notes. There is mild periwound erythema edema and warmth. There is scant drainage noted. Wound base demonstrates exposed Achilles tendon with fibronecrotic appearance. Musculoskeletal: Muscular strength diminished to left Achilles tendon to 4 out of 5. Achilles tendon does appear to remain intact at current. Patient has no pain with calf squeeze bilaterally. No gross deformity noted. 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[employer] ) Arrival Mode Ambulatory Transfer Assistance None Patient Identification Verified (Name & Yes ) Patient Requires Transmission-Based No Precautions Height and Weight Body Mass Index (BMI) 23.3 BMI Classification Normal Vital Signs Temperature (97.8 F-99.1 F) 97 F L Temperature Source Temporal Pulse Rate (60-100) 89 Pulse Location Monitor Respiratory Rate (12-18) 16 Respiratory rate source Observation Oxygen Delivery Method Room Air Blood Pressure (90/60-120/80) 103/59 L Blood Pressure Mean (mm Hg) 73 Source Monitor Position Sitting Blood Pressure Location Right Arm History Since Last Visit- (Skip if this is Patient's initial visit) Have you changed medications since your No last visit? Any new allergies or adverse reactions No Had a fall/change in ADL's that may No increase risk of falls Signs or symptoms of abuse and/or No neglect since last visit Have you been in the hospital since your No last visit? Has dressing in place as prescribed Yes Has compression in place as prescribed N/A Has offloadiing in place as prescribed N/A Experienced any changes in pain level or No management Left Footwear Removable Cast Walker/Walking Boot Right Footwear Regular Shoe Pain Scale: 0-10 Numeric Is Patient Pain Free? Yes - Nurse 1 - General Ulcer Measurement Start: 11/30/23 09:46 Freq: Status: Active Protocol: Activity Type Activity Date Activity User E-sign Co-sign Detail Recorded Client Recorded Date Recorded By Document 11/30/23 09:46 [facility] [email or web address] 11/30/23 09:57 [facility] 11/30/23 09:46 Wound Center Nurse 1 #1 L Achillees -Combined with other wound No -Current Size (cm) - Length 0.9 -Current Size (cm) - Width 1 -Current Size (cm) - Depth 0.5 -Total Square Cm 0.9 -Date of Last Picture (Recall this 11/30/23 field) -Photo Taken Yes -Epithelialization None Present -Tunneling No -Undermining/Tunneling No -Circular Undermining No -Exudate Amt Medium -Exudate Type Serosanguineous -Wound Margin Distinct, Outline Attached -Granulation Amt Small (1-33%) -Granulation Quality Red -Slough/Fibrin Yes -Necrosis Amt Large (67-100%) -Necrotic Tissue Type Adherent Slough -Structure Exposed Tendon -Texture (Mica-wound Skin Appearance) Assessed -Moisture (Mica-wound Skin Appearance) Assessed -Color (Mica-wound Skin Appearance) Assessed -Temperature (Mica-wound Skin No Abnormality Appearance) (Pt Warm) -Tenderness on Palpation (Mica-wound No Skin Appearance) -Ulcer Cleansing Rinsed/ Irrigated with Saline -Foul Odor after Cleansing No -Anesthetic Used 5% Lidocaine Gel Left Calf (cm) 31 Left Ankle (cm) 19.1 WC - Nurse 2 - General Ulcer CM Notes Start: 11/30/23 09:46 Freq: Status: Active Protocol: Activity Type Activity Date Activity User E-sign Co-sign Detail Recorded Client Recorded Date Recorded By Document 11/30/23 10:09 [id number] 11/30/23 10:10 11/30/23 10:09 Wound Center Nurse 2 #1 Tanya Wise -Time 10:09 -Correct Patient Yes -Correct Side, Site, Position Yes -Correct Procedure Yes -Procedure Performed Yes -Type of Procedure Debridement -Clinical Debridement Muscle / Fascia -Tissue Removed Muscle,Fascia -Post Debridement (cm) - Length 1.5 -Post Debridement (cm) - Width 1.0 -Post Debridement (cm) - Depth 0.8 -Total Square (Post) (cm) 1.50 -Area of Debridement (cm) - Length 1.5 -Area of Debridement (cm) - Width 1.0 -Total Square (Area) (cm) 1.50 -Tunneling No -Undermining/Tunneling No -Circular Undermining No -Wound/Ulcer Outcome Not Healed -Ulcer Cleansing Rinsed/ Irrigated with Saline -Foul Odor after Cleansing No -Bioengineered Tissue No -Bleeding Controlled with Pressure -Treatment Response Procedure Tolerated Well -Offloading Yes -Type of Offloading Total Contact Cast (TCC) - Left ($) -Debridement - Muscle / Fascia, 1st Yes 20sq cm Pain Scale: 0-10 Numeric Is Patient Pain Free? Yes CLARA - Nurse 3 - General Ulcer D/C NN Start: 11/30/23 09:46 Freq: Status: Active Protocol: Activity Type Activity Date Activity User E-sign Co-sign Detail Recorded Client Recorded Date Recorded By Document 11/30/23 10:21 KW z 11/30/23 10:21 KW 11/30/23 10:21 Wound Care Center Nurse 3 #1 L Achillees -Primary Dressing Applied Silvercel -Other Dressing betadine -Primary Dressing Covered/Secured with Dry Gauze & Roll Gauze, Secured with Tape -Silvercel 1 Pain Scale: 0-10 Numeric Is Patient Pain Free? Yes WC - Visit Discharge Discharge Condition Stable Ambulatory Status Ambulatory, Crutches Transportation Private Auto Medication Reconcilliation completed & No provided to patient/care provider Clinical Summary of Care Provided Yes Assessment/Plan Assessment/Plan (1) Left ankle pain: CODE(S): M25.572 - Pain in left ankle and joints of left foot QUALIFIERS: Chronicity: acute Qualified Code(s): M25.572 - Pain in left ankle and joints of left foot PLAN: Exam performed. Reviewed prior notes per Dr. Avila. Wound to posterior left Achilles with exposed Achilles tendon noted. Concern for superficial infection noted. Left posterior ankle wound was debrided excisionally down to and including level of Achilles tendon using combination of 15 blade and pickups as well as a 7 mm dermal curette. All nonviable tissue was removed. Topical anesthesia was used. Pre and postdebridement measurements documented nursing notes. Patient tolerated procedure well. Wound culture positive for Staph epidermidis. Patient will complete course of Bactrim. Wound dressed with Betadine alginate DSD. Today we will plan for total contact casting. This was applied with the foot and ankle held in a rectus position and adequate offloading. Patient to take 81 mg aspirin daily for DVT prophylaxis. Follow-up in 1 week (2) Non-pressure chronic ulcer of left ankle with necrosis of muscle: CODE(S): L97.323 - Non-pressure chronic ulcer of left ankle with necrosis of muscle
[2023-12-07 10:11] VITALS: BP 112/67; PULSE 89; RESP 18; TEMP 36.3; BMI 23.3
--- NOTE | 2023-12-07 10:57 | PN.PCM_ITS ---
History of Present Illness Date of Service: 12/07/23 Progress of Wound: 53-year-old female presents for left posterior Achilles wound in setting of recent percutaneous Achilles repair performed by Dr. Hernandez 9 weeks prior. Patient had total contact cast applied on last visit. Patient due to anxiety and had this removed in the emergency room. Patient presents today with occasional left ankle wound pain. Patient maintain nonweightbearing assisted by crutches with Cam boot. Patient denies any fever chills nausea vomiting chest pain calf pain shortness of breath has no other complaints today. Objective Data Objective Data Vital Signs: Vital Signs Temp Pulse Resp BP O2 Del Method 97.4 F L 89 18 112/67 Room Air 12/07/23 10:11 12/07/23 10:11 12/07/23 10:11 12/07/23 10:11 12/07/23 10:11 Oxygen Delivery Method Room Air Weight: 65.529 kg Body Mass Index (BMI) 23.3 Physical Exam Narrative Vascular: Dorsalis pedis posterior tibial pulses 2 out of 4 to bilateral lower extremity. Skin well-hydrated, supple with normal texture and turgor. Digital hair growth noted. Capillary fill time less than 3 seconds to digits 1 through 5 bilaterally. No gross edema noted. Neurologic: Light touch protective sensation intact bilateral lower extremity. No evidence of Babinski or clonus. Dermatologic: Full-thickness wound to the posterior left Achilles. This wound extends down to the level of the Achilles. Pre and postdebridement measurements documented nursing notes. There is mild periwound erythema edema and warmth. There is scant drainage noted. Wound base demonstrates exposed Achilles tendon with fibronecrotic appearance. Musculoskeletal: Muscular strength diminished to left Achilles tendon to 4 out of 5. Achilles tendon does appear to remain intact at current. Patient has no pain with calf squeeze bilaterally. No gross deformity noted. Debridement Note Debridement Note Post-Debridement Measurements and Additional Note: Post-Debridement Measurements/Treatment WC - Nurse 1 - General Ulcer Assessment Start: 11/30/23 09:46 Freq: Status: Active Protocol: CLARA.LOWEXT Activity Type Activity Date Activity User E-sign Co-sign Detail Recorded Client Recorded Date Recorded By Document 11/30/23 09:46 BMF [email or web address] 11/30/23 09:57 BMF Document 12/07/23 10:11 KW l 12/07/23 10:15 KW 11/30/23 12/07/23 09:46 10:11 - Today's Visit Information Type of service Follow-up Visit Follow-up Visit (Physician/EXTRACTOR OPERATOR HELPER (Physician/EXTRACTOR OPERATOR HELPER ) ) Arrival Mode Ambulatory Crutches Transfer Assistance None Patient Identification Verified (Name & Yes Yes ) Patient Requires Transmission-Based No Precautions Height and Weight Body Mass Index (BMI) 23.3 23.3 BMI Classification Normal Normal Vital Signs Temperature (97.8 F-99.1 F) 97 F L 97.4 F L Temperature Source Temporal Temporal Pulse Rate (60-100) 89 89 Pulse Location Monitor Monitor Respiratory Rate (12-18) 16 18 Respiratory rate source Observation Observation Oxygen Delivery Method Room Air Room Air Blood Pressure (90/60-120/80) 103/59 L 112/67 Blood Pressure Mean (mm Hg) 73 82 Source Monitor Monitor Position Sitting Semi-Fowlers Blood Pressure Location Right Arm Left Arm History Since Last Visit- (Skip if this is Patient's initial visit) Have you changed medications since your No No last visit? Any new allergies or adverse reactions No No Had a fall/change in ADL's that may No No increase risk of falls Signs or symptoms of abuse and/or No No neglect since last visit Have you been in the hospital since your No Yes last visit? Has dressing in place as prescribed Yes Yes Has compression in place as prescribed N/A Yes Has offloadiing in place as prescribed N/A N/A Experienced any changes in pain level or No No management Left Footwear Removable Cast No Footwear Walker/Walking Boot Right Footwear Regular Shoe Regular Shoe Pain Scale: 0-10 Numeric Is Patient Pain Free? Yes Yes - Nurse 1 - General Ulcer Measurement Start: 11/30/23 09:46 Freq: Status: Active Protocol: Activity Type Activity Date Activity User E-sign Co-sign Detail Recorded Client Recorded Date Recorded By Document 11/30/23 09:46 BM [email or web address] 11/30/23 09:57 BM Document 12/07/23 10:11 KW l 12/07/23 10:15 KW 11/30/23 12/07/23 09:46 10:11 Wound Center Nurse 1 #1 L Achjermaine -Combined with other wound No -Current Size (cm) - Length 0.9 0.9 -Current Size (cm) - Width 1 1 -Current Size (cm) - Depth 0.5 1.2 -Total Square Cm 0.9 0.9 -Date of Last Picture (Recall this 11/30/23 12/07/23 field) -Photo Taken Yes -Epithelialization None Present -Tunneling No -Undermining/Tunneling No -Circular Undermining No -Exudate Amt Medium Medium -Exudate Type Serosanguineous Serosanguineous -Wound Margin Distinct, Distinct, Outline Outline Attached Attached -Granulation Amt Small (1-33%) Small (1-33%) -Granulation Quality [place] -Slough/Fibrin Yes -Necrosis Amt Large (67-100%) Large (67-100%) -Necrotic Tissue Type Adherent Slough Adherent Slough -Structure Exposed Tendon -Texture (Mica-wound Skin Appearance) Assessed Assessed -Moisture (Mica-wound Skin Appearance) Assessed Assessed -Color (Mica-wound Skin Appearance) Assessed Assessed -Temperature (Mica-wound Skin No Abnormality No Abnormality Appearance) (Pt Warm) (Pt Warm) -Tenderness on Palpation (Mica-wound No No Skin Appearance) -Ulcer Cleansing Rinsed/ Rinsed/ Irrigated with Irrigated with Saline Saline -Foul Odor after Cleansing No No -Anesthetic Used 5% Lidocaine 5% Lidocaine Gel Gel Left Calf (cm) 31 Left Ankle (cm) 19.1 WC - Nurse 2 - General Ulcer CM Notes Start: 11/30/23 09:46 Freq: Status: Active Protocol: Activity Type Activity Date Activity User E-sign Co-sign Detail Recorded Client Recorded Date Recorded By Document 11/30/23 10:09 [id number] 11/30/23 10:10 Document 12/07/23 10:35 0000 12/07/23 10:36 JF 11/30/23 12/07/23 10:09 10:35 Wound Center Nurse 2 #1 Tanya Wise -Time 10:09 10:35 -Correct Patient Yes Yes -Correct Side, Site, Position Yes Yes -Correct Procedure Yes Yes -Procedure Performed Yes Yes -Type of Procedure Debridement Debridement -Clinical Debridement Muscle / Fascia Muscle / Fascia -Tissue Removed Muscle,Fascia Tendon -Post Debridement (cm) - Length 1.5 1.2 -Post Debridement (cm) - Width 1.0 1.0 -Post Debridement (cm) - Depth 0.8 1.2 -Total Square (Post) (cm) 1.50 1.20 -Area of Debridement (cm) - Length 1.5 1.2 -Area of Debridement (cm) - Width 1.0 1.0 -Total Square (Area) (cm) 1.50 1.20 -Tunneling No No -Undermining/Tunneling No No -Circular Undermining No No -Wound/Ulcer Outcome Not Healed Not Healed -Ulcer Cleansing Rinsed/ Rinsed/ Irrigated with Irrigated with Saline Saline -Foul Odor after Cleansing No No -Bioengineered Tissue No No -Bleeding Controlled with Pressure Pressure -Treatment Response Procedure Procedure Tolerated Well Tolerated Well -Offloading Yes No -Type of Offloading Total Contact Cast (TCC) - Left ($) -Debridement - Muscle / Fascia, 1st Yes Yes 20sq cm Pain Scale: 0-10 Numeric Is Patient Pain Free? Yes Yes - Nurse 3 - General Ulcer D/C NN Start: 11/30/23 09:46 Freq: Status: Active Protocol: Activity Type Activity Date Activity User E-sign Co-sign Detail Recorded Client Recorded Date Recorded By Document 11/30/23 10:21 KW z 11/30/23 10:21 KW 11/30/23 10:21 Wound Care Center Nurse 3 #1 L Achillees -Primary Dressing Applied Silvercel -Other Dressing betadine -Primary Dressing Covered/Secured with Dry Gauze & Roll Gauze, Secured with Tape -Silvercel 1 Pain Scale: 0-10 Numeric Is Patient Pain Free? Yes WC - Visit Discharge Discharge Condition Stable Ambulatory Status Ambulatory, Crutches Transportation Private Auto Medication Reconcilliation completed & No provided to patient/care provider Clinical Summary of Care Provided Yes Assessment/Plan Assessment/Plan (1) Left ankle pain: CODE(S): M25.572 - Pain in left ankle and joints of left foot QUALIFIERS: Chronicity: acute Qualified Code(s): M25.572 - Pain in left ankle and joints of left foot PLAN: Exam performed. Reviewed prior notes per Dr. Avila. Wound to posterior left Achilles with exposed Achilles tendon noted with infection. Left posterior ankle wound was debrided excisionally down to and including level of Achilles tendon using combination of 15 blade and pickups as well as a 7 mm dermal curette. All nonviable tissue was removed. Topical anesthesia was used. Pre and postdebridement measurements documented nursing notes. Patient tolerated procedure well. wound flushed/cultured - rx for keflex will plan for wound vac today wound dressed with dakins/DSD/tubigrip for compression continue non-weightbearing on left assisted by crutches/cam boot Patient to take 81 mg aspirin daily for DVT prophylaxis. Follow-up in 1 week (2) Non-pressure chronic ulcer of left ankle with necrosis of muscle: CODE(S): L97.323 - Non-pressure chronic ulcer of left ankle with necrosis of muscle (3) Cellulitis of left lower limb: CODE(S): L03.116 - Cellulitis of left lower limb
--- NOTE | 2023-12-09 09:39 | WC ---
PHOTO 12/07/2023 LT MENDOZA
[2023-12-10 15:26] VITALS: BP 90/42; PULSE 80; RESP 16; TEMP 36.4; BMI 23.3
[2023-12-14 10:02] VITALS: BP 108/73; PULSE 82; RESP 20; TEMP 36.1; BMI 23.3
--- NOTE | 2023-12-14 10:37 | PN.PCM_ITS ---
History of Present Illness Date of Service: 12/14/23 Progress of Wound: 53-year-old female presents for left posterior Achilles wound in setting of recent percutaneous Achilles repair performed by Dr. Hernandez 9 weeks prior. Patient had total contact cast applied on last visit. Patient due to anxiety and had this removed in the emergency room. Patient presents today with occasional left ankle wound pain. Patient maintain nonweightbearing assisted by crutches with Cam boot. Patient denies any fever chills nausea vomiting chest pain calf pain shortness of breath has no other complaints today. Objective Data Objective Data Vital Signs: Vital Signs Temp Pulse Resp BP O2 Del Method 97 F L 82 20 H 108/73 Room Air 12/14/23 10:02 12/14/23 10:02 12/14/23 10:02 12/14/23 10:02 12/10/23 15:26 Oxygen Delivery Method Room Air Weight: 65.529 kg Body Mass Index (BMI) 23.3 Lab / Micro Data Micro: Microbiology 12/07/23 10:31 Ulcer, Decubitus - Other Gram Stain - Final 12/07/23 10:31 Ulcer, Decubitus - Other Wound Culture - Final Staphylococcus hominis hominis 12/07/23 10:31 Ulcer, Decubitus - Other Anaerobic Culture - Final Anaerobic cocci Physical Exam Narrative Vascular: Dorsalis pedis posterior tibial pulses 2 out of 4 to bilateral lower extremity. Skin well-hydrated, supple with normal texture and turgor. Digital hair growth noted. Capillary fill time less than 3 seconds to digits 1 through 5 bilaterally. No gross edema noted. Neurologic: Light touch protective sensation intact bilateral lower extremity. No evidence of Babinski or clonus. Dermatologic: Full-thickness wound to the posterior left Achilles. This wound extends down to the level of the Achilles. Pre and postdebridement measurements documented nursing notes. There is mild periwound erythema edema and warmth. There is scant drainage noted. Wound base demonstrates exposed Achilles tendon with fibronecrotic appearance. Musculoskeletal: Muscular strength diminished to left Achilles tendon to 4 out of 5. Achilles tendon does appear to remain intact at current. Patient has no pain with calf squeeze bilaterally. No gross deformity noted. Debridement Note Debridement Note Post-Debridement Measurements and Additional Note: Post-Debridement Measurements/Treatment WC - Nurse 1 - General Ulcer Assessment Start: 11/30/23 09:46 Freq: Status: Active Protocol: LOWEXT Activity Type Activity Date Activity User E-sign Co-sign Detail Recorded Client Recorded Date Recorded By Document 11/30/23 09:46 BMF [email or web address] 11/30/23 09:57 BMF Document 12/07/23 10:11 KW l 12/07/23 10:15 KW Document 12/10/23 15:26 GM wc 12/10/23 15:27 GM Document 12/14/23 10:02 DL [email or web address] 12/14/23 10:09 DL 11/30/23 12/07/23 12/10/23 09:46 10:11 15:26 WC - Today's Visit Information Type of service Follow-up Visit Follow-up Visit Nurse-only (Physician/BODY CARE MANAGER (Physician/BODY CARE MANAGER Visit ) ) Arrival Mode Ambulatory Crutches Ambulatory, Crutches Transfer Assistance None None Patient Identification Verified (Name & Yes Yes Yes ) Patient Requires Transmission-Based No Precautions Height and Weight Body Mass Index (BMI) 23.3 23.3 23.3 BMI Classification Normal Normal Normal Vital Signs Temperature (97.8 F-99.1 F) 97 F L 97.4 F L 97.6 F L Temperature Source Temporal Temporal Temporal Pulse Rate (60-100) 89 89 80 Pulse Location Monitor Monitor Monitor Respiratory Rate (12-18) 16 18 16 Respiratory rate source Observation Observation Observation Oxygen Delivery Method Room Air Room Air Room Air Blood Pressure (90/60-120/80) 103/59 L 112/67 90/42 L Blood Pressure Mean (mm Hg) 73 82 58 Source Monitor Monitor Monitor Position Sitting Semi-Fowlers Sitting Blood Pressure Location Right Arm Left Arm Left Arm History Since Last Visit- (Skip if this is Patient's initial visit) Have you changed medications since your No No No last visit? Any new allergies or adverse reactions No No No Had a fall/change in ADL's that may No No No increase risk of falls Signs or symptoms of abuse and/or No No No neglect since last visit Have you been in the hospital since your No Yes No last visit? Has dressing in place as prescribed Yes Yes Yes Has compression in place as prescribed N/A Yes Yes Has offloadiing in place as prescribed N/A N/A Yes Experienced any changes in pain level or No No No management Left Footwear Removable Cast No Footwear Removable Cast Walker/Walking Walker/Walking Boot Boot Right Footwear Regular Shoe Regular Shoe Regular Shoe Pain Scale: 0-10 Numeric Is Patient Pain Free? Yes Yes Yes 12/14/23 10:02 - Today's Visit Information Type of service Follow-up Visit (Physician/BODY CARE MANAGER ) Arrival Mode Ambulatory, Crutches Transfer Assistance None Patient Identification Verified (Name & Yes ) Patient Requires Transmission-Based No Precautions Height and Weight Body Mass Index (BMI) 23.3 BMI Classification Normal Vital Signs Temperature (97.8 F-99.1 F) 97 F L Temperature Source Temporal Pulse Rate (60-100) 82 Pulse Location Monitor Respiratory Rate (12-18) 20 H Respiratory rate source Observation Oxygen Delivery Method Blood Pressure (90/60-120/80) 108/73 Blood Pressure Mean (mm Hg) 84 Source Monitor Position Blood Pressure Location History Since Last Visit- (Skip if this is Patient's initial visit) Have you changed medications since your No last visit? Any new allergies or adverse reactions No Had a fall/change in ADL's that may No increase risk of falls Signs or symptoms of abuse and/or No neglect since last visit Have you been in the hospital since your No last visit? Has dressing in place as prescribed Yes Has compression in place as prescribed Yes Has offloadiing in place as prescribed Yes Experienced any changes in pain level or No management Left Footwear Right Footwear Pain Scale: 0-10 Numeric Is Patient Pain Free? Yes - Nurse 1 - General Ulcer Measurement Start: 11/30/23 09:46 Freq: Status: Active Protocol: Activity Type Activity Date Activity User E-sign Co-sign Detail Recorded Client Recorded Date Recorded By Document 11/30/23 09:46 BMF [email or web address] 11/30/23 09:57 BMF Document 12/07/23 10:11 KW l 12/07/23 10:15 KW Document 12/14/23 10:02 DL [email or web address] 12/14/23 10:09 DL 11/30/23 12/07/23 12/14/23 09:46 10:11 10:02 Wound Center Nurse 1 #1 L Achillees -Combined with other wound No -Current Size (cm) - Length 0.9 0.9 1 -Current Size (cm) - Width 1 1 0.8 -Current Size (cm) - Depth 0.5 1.2 1.2 -Total Square Cm 0.9 0.9 0.8 -Date of Last Picture (Recall this 11/30/23 12/07/23 field) -Photo Taken Yes No -Epithelialization None Present -Tunneling No -Undermining/Tunneling No -Circular Undermining No -Exudate Amt Medium Medium Medium -Exudate Type Serosanguineous Serosanguineous Serosanguineous -Wound Margin Distinct, Distinct, Distinct, Outline Outline Outline Attached Attached Attached -Granulation Amt Small (1-33%) Small (1-33%) None Present (0 %) -Granulation Quality [place] -Slough/Fibrin Yes -Necrosis Amt Large (67-100%) Large (67-100%) Large (67-100%) -Necrotic Tissue Type Adherent Slough Adherent Slough Adherent Slough -Structure Exposed Tendon N/A -Texture (Mica-wound Skin Appearance) Assessed Assessed Scarring -Moisture (Mica-wound Skin Appearance) Assessed Assessed Maceration -Color (Mica-wound Skin Appearance) Assessed Assessed No Abnormality -Temperature (Mica-wound Skin No Abnormality No Abnormality No Abnormality Appearance) (Pt Warm) (Pt Warm) (Pt Warm) -Tenderness on Palpation (Mica-wound No No Skin Appearance) -Ulcer Cleansing Rinsed/ Rinsed/ Soap and Water Irrigated with Irrigated with Saline Saline -Foul Odor after Cleansing No No No -Anesthetic Used 5% Lidocaine 5% Lidocaine 5% Lidocaine Gel Gel Gel Left Calf (cm) 31 Left Ankle (cm) 19.1 WC - Nurse 2 - General Ulcer CM Notes Start: 11/30/23 09:46 Freq: Status: Active Protocol: Activity Type Activity Date Activity User E-sign Co-sign Detail Recorded Client Recorded Date Recorded By Document 11/30/23 10:09 [id number] 11/30/23 10:10 JF Document 12/07/23 10:35 JF 0000 12/07/23 10:36 JF 11/30/23 12/07/23 10:09 10:35 Wound Center Nurse 2 #1 Tanya Wise -Time 10:09 10:35 -Correct Patient Yes Yes -Correct Side, Site, Position Yes Yes -Correct Procedure Yes Yes -Procedure Performed Yes Yes -Type of Procedure Debridement Debridement -Clinical Debridement Muscle / Fascia Muscle / Fascia -Tissue Removed Muscle,Fascia Tendon -Post Debridement (cm) - Length 1.5 1.2 -Post Debridement (cm) - Width 1.0 1.0 -Post Debridement (cm) - Depth 0.8 1.2 -Total Square (Post) (cm) 1.50 1.20 -Area of Debridement (cm) - Length 1.5 1.2 -Area of Debridement (cm) - Width 1.0 1.0 -Total Square (Area) (cm) 1.50 1.20 -Tunneling No No -Undermining/Tunneling No No -Circular Undermining No No -Wound/Ulcer Outcome Not Healed Not Healed -Ulcer Cleansing Rinsed/ Rinsed/ Irrigated with Irrigated with Saline Saline -Foul Odor after Cleansing No No -Bioengineered Tissue No No -Bleeding Controlled with Pressure Pressure -Treatment Response Procedure Procedure Tolerated Well Tolerated Well -Offloading Yes No -Type of Offloading Total Contact Cast (TCC) - Left ($) -Debridement - Muscle / Fascia, 1st Yes Yes 20sq cm Pain Scale: 0-10 Numeric Is Patient Pain Free? Yes Yes - Nurse 3 - General Ulcer D/C NN Start: 11/30/23 09:46 Freq: Status: Active Protocol: Activity Type Activity Date Activity User E-sign Co-sign Detail Recorded Client Recorded Date Recorded By Document 11/30/23 10:21 KW 11/30/23 10:21 KW Document 12/07/23 10:59 DL [email or web address] 12/07/23 11:01 DL Document 12/10/23 15:26 GM 12/10/23 15:27 GM 11/30/23 12/07/23 12/10/23 10:21 10:59 15:26 Wound Care Center Nurse 3 #1 L Billie -Ulcer Cleansing Rinsed/ Not Cleansed Irrigated with Saline -Foul Odor after Cleansing No No -Negative Pressure Wound Therapy Start -Negative Pressure is Continuous -Primary Dressing Applied Silvercel Hysept ($) -Other Dressing betadine -Primary Dressing Covered/Secured with Dry Gauze & Dry Gauze & Roll Gauze, Roll Gauze, Secured with Secured with Tape Tape -NPWT Application Charge NPWT </= 50 sq cm ($) -Silvercel 1 -Wound Comment(s) Pt to start VAC when available . Left -Compression Wrap Levi Wrap -Other tibigrip Treatment Response Procedure Tolerated Well Vital Signs Temperature (97.8 F-99.1 F) 97.6 F L Temperature Source Temporal Pulse Rate (60-100) 80 Pulse Location Monitor Respiratory Rate (12-18) 16 Respiratory rate source Observation Oxygen Delivery Method Room Air Blood Pressure (90/60-120/80) 90/42 L Blood Pressure Mean (mm Hg) 58 Source Monitor Position Sitting Blood Pressure Location Left Arm Pain Scale: 0-10 Numeric Is Patient Pain Free? Yes Yes Yes WC - Visit Discharge Discharge Condition Stable Stable Stable Ambulatory Status Ambulatory, Ambulatory, Ambulatory, Crutches Crutches Crutches Transportation Private Auto Private Auto Private Auto Medication Reconcilliation completed & No provided to patient/care provider Clinical Summary of Care Provided Yes Facility Type Home Health Orders Sent Yes Assessment/Plan Assessment/Plan (1) Left ankle pain: CODE(S): M25.572 - Pain in left ankle and joints of left foot QUALIFIERS: Chronicity: acute Qualified Code(s): M25.572 - Pain in left ankle and joints of left foot PLAN: Exam performed. Reviewed prior notes per Dr. Avila. Wound to posterior left Achilles with exposed Achilles tendon noted with infection. Left posterior ankle wound was debrided excisionally down to and including level of Achilles tendon using combination of 15 blade and pickups as well as a 7 mm dermal curette. All nonviable tissue was removed. Topical anesthesia was used. Pre and postdebridement measurements documented nursing notes. Patient t olerated procedure well. Wound culture positive for Staph hominis and anaerobic cocci. Patient continue Keflex. Patient will start additionally doxycycline. Patient is having some heel pain give her a Medrol Dosepak. Discontinue wound VAC due to tendon infection worsening. today wound dressed with dakins/DSD/tubigrip for compression continue non-weightbearing on left assisted by crutches/cam boot Patient to take 81 mg aspirin daily for DVT prophylaxis. Follow-up in 1 week If no improvement next week we will plan for hospital admission intraoperative debridement with possible Achilles tendon reconstruction. (2) Non-pressure chronic ulcer of left ankle with necrosis of muscle: CODE(S): L97.323 - Non-pressure chronic ulcer of left ankle with necrosis of muscle (3) Cellulitis of left lower limb: CODE(S): L03.116 - Cellulitis of left lower limb
--- NOTE | 2023-12-20 15:47 | WC ---
Patient called about having steroid injections placed, notified Dr Sam who will adress this wednesday. Patient also needed more supplies ordered and i provided Noreen's number for her to call. Ordered was initially placed by wound center, patient's need to order as they run out. Left this info on her voicemail.
[2023-12-21 09:59] VITALS: BP 101/58; PULSE 84; RESP 18; TEMP 36.4; BMI 23.3
--- NOTE | 2023-12-21 10:34 | PCM.WC.PN ---
History of Present Illness Date of Service: 12/21/23 Progress of Wound: 53-year-old female presents for left posterior Achilles wound in setting of recent percutaneous Achilles repair performed by Dr. Hernandez 9 weeks prior. Patient had total contact cast applied on last visit. Patient due to anxiety and had this removed in the emergency room. Patient presents today with occasional left ankle wound pain. Patient maintain nonweightbearing assisted by crutches with Cam boot. Patient denies any fever chills nausea vomiting chest pain calf pain shortness of breath has no other complaints today. Objective Data Objective Data Vital Signs: Vital Signs Temp Pulse Resp BP O2 Del Method 97.5 F L 84 18 101/58 L Room Air 12/21/23 09:59 12/21/23 09:59 12/21/23 09:59 12/21/23 09:59 12/10/23 15:26 Oxygen Delivery Method Room Air Weight: 65.529 kg Body Mass Index (BMI) 23.3 Lab / Micro Data Micro: Microbiology 12/07/23 10:31 Ulcer, Decubitus - Other Gram Stain - Final 12/07/23 10:31 Ulcer, Decubitus - Other Wound Culture - Final Staphylococcus hominis hominis 12/07/23 10:31 Ulcer, Decubitus - Other Anaerobic Culture - Final Anaerobic cocci Physical Exam Narrative Vascular: Dorsalis pedis posterior tibial pulses 2 out of 4 to bilateral lower extremity. Skin well-hydrated, supple with normal texture and turgor. Digital hair growth noted. Capillary fill time less than 3 seconds to digits 1 through 5 bilaterally. No gross edema noted. Neurologic: Light touch protective sensation intact bilateral lower extremity. No evidence of Babinski or clonus. Dermatologic: Full-thickness wound to the posterior left Achilles. This wound extends down to the level of the Achilles. Pre and postdebridement measurements documented nursing notes. There is mild periwound erythema edema and warmth. There is scant drainage noted. Wound base demonstrates exposed Achilles tendon with fibronecrotic appearance. Musculoskeletal: Muscular strength diminished to left Achilles tendon to 4 out of 5. Achilles tendon does appear to remain intact at current. Patient has no pain with calf squeeze bilaterally. No gross deformity noted. Debridement Note Debridement Note Post-Debridement Measurements and Additional Note: Post-Debridement Measurements/Treatment WC - Nurse 1 - General Ulcer Assessment Start: 11/30/23 09:46 Freq: Status: Active Protocol: WC.LOWEXT Activity Type Activity Date Activity User E-sign Co-sign Detail Recorded Client Recorded Date Recorded By Document 11/30/23 09:46 BMF [email or web address] 11/30/23 09:57 BMF Document 12/07/23 10:11 KW l 12/07/23 10:15 KW Document 12/10/23 15:26 GM wc 12/10/23 15:27 GM Document 12/14/23 10:02 DL [email or web address] 12/14/23 10:09 DL Document 12/21/23 09:59 RB wound 12/21/23 10:09 RB 11/30/23 12/07/23 12/10/23 09:46 10:11 15:26 WC - Today's Visit Information Type of service Follow-up Visit Follow-up Visit Nurse-only (Physician/REFRIGERATING MACHINE OPERATOR (Physician/REFRIGERATING MACHINE OPERATOR Visit ) ) Arrival Mode Ambulatory Crutches Ambulatory, Crutches Transfer Assistance None None Patient Identification Verified (Name & Yes Yes Yes ) Patient Requires Transmission-Based No Precautions Height and Weight Body Mass Index (BMI) 23.3 23.3 23.3 BMI Classification Normal Normal Normal Vital Signs Temperature (97.8 F-99.1 F) 97 F L 97.4 F L 97.6 F L Temperature Source Temporal Temporal Temporal Pulse Rate (60-100) 89 89 80 Pulse Location Monitor Monitor Monitor Respiratory Rate (12-18) 16 18 16 Respiratory rate source Observation Observation Observation Oxygen Delivery Method Room Air Room Air Room Air Blood Pressure (90/60-120/80) 103/59 L 112/67 90/42 L Blood Pressure Mean (mm Hg) 73 82 58 Source Monitor Monitor Monitor Position Sitting Semi-Fowlers Sitting Blood Pressure Location Right Arm Left Arm Left Arm History Since Last Visit- (Skip if this is Patient's initial visit) Have you changed medications since your No No No last visit? Any new allergies or adverse reactions No No No Had a fall/change in ADL's that may No No No increase risk of falls Signs or symptoms of abuse and/or No No No neglect since last visit Have you been in the hospital since your No Yes No last visit? Has dressing in place as prescribed Yes Yes Yes Has compression in place as prescribed N/A Yes Yes Has offloadiing in place as prescribed N/A N/A Yes Experienced any changes in pain level or No No No management Left Footwear Removable Cast No Footwear Removable Cast Walker/Walking Walker/Walking Boot Boot Right Footwear Regular Shoe Regular Shoe Regular Shoe Pain Scale: 0-10 Numeric Is Patient Pain Free? Yes Yes Yes 12/14/23 12/21/23 10:02 09:59 - Today's Visit Information Type of service Follow-up Visit Follow-up Visit (Physician/REFRIGERATING MACHINE OPERATOR (Physician/REFRIGERATING MACHINE OPERATOR ) ) Arrival Mode Ambulatory, Ambulatory, Crutches Crutches Transfer Assistance None None Patient Identification Verified (Name & Yes Yes ) Patient Requires Transmission-Based No No Precautions Height and Weight Body Mass Index (BMI) 23.3 23.3 BMI Classification Normal Normal Vital Signs Temperature (97.8 F-99.1 F) 97 F L 97.5 F L Temperature Source Temporal Temporal Pulse Rate (60-100) 82 84 Pulse Location Monitor Monitor Respiratory Rate (12-18) 20 H 18 Respiratory rate source Observation Observation Oxygen Delivery Method Blood Pressure (90/60-120/80) 108/73 101/58 L Blood Pressure Mean (mm Hg) 84 72 Source Monitor Monitor Position Semi-Fowlers Blood Pressure Location Left Arm History Since Last Visit- (Skip if this is Patient's initial visit) Have you changed medications since your No No last visit? Any new allergies or adverse reactions No No Had a fall/change in ADL's that may No No increase risk of falls Signs or symptoms of abuse and/or No No neglect since last visit Have you been in the hospital since your No No last visit? Has dressing in place as prescribed Yes Yes Has compression in place as prescribed Yes Yes Has offloadiing in place as prescribed Yes No Experienced any changes in pain level or No No management Left Footwear Right Footwear Pain Scale: 0-10 Numeric Is Patient Pain Free? Yes Yes - Nurse 1 - General Ulcer Measurement Start: 11/30/23 09:46 Freq: Status: Active Protocol: Activity Type Activity Date Activity User E-sign Co-sign Detail Recorded Client Recorded Date Recorded By Document 11/30/23 09:46 BMF [email or web address] 11/30/23 09:57 BMF Document 12/07/23 10:11 KW l 12/07/23 10:15 KW Document 12/14/23 10:02 DL [email or web address] 12/14/23 10:09 DL Document 12/21/23 09:59 RB wound 12/21/23 10:09 RB 11/30/23 12/07/23 12/14/23 09:46 10:11 10:02 Wound Center Nurse 1 #1 L Achilles -Combined with other wound No -Current Size (cm) - Length 0.9 0.9 1 -Current Size (cm) - Width 1 1 0.8 -Current Size (cm) - Depth 0.5 1.2 1.2 -Total Square Cm 0.9 0.9 0.8 -Date of Last Picture (Recall this 11/30/23 12/07/23 field) -Photo Taken Yes No -Epithelialization None Present -Tunneling No -Undermining/Tunneling No -Circular Undermining No -Exudate Amt Medium Medium Medium -Exudate Type Serosanguineous Serosanguineous Serosanguineous -Wound Margin Distinct, Distinct, Distinct, Outline Outline Outline Attached Attached Attached -Granulation Amt Small (1-33%) Small (1-33%) None Present (0 %) -Granulation Quality Red [place] -Slough/Fibrin Yes -Necrosis Amt Large (67-100%) Large (67-100%) Large (67-100%) -Necrotic Tissue Type Adherent Slough Adherent Slough Adherent Slough -Structure Exposed Tendon N/A -Texture (Mica-wound Skin Appearance) Assessed Assessed Scarring -Moisture (Mica-wound Skin Appearance) Assessed Assessed Maceration -Color (Mica-wound Skin Appearance) Assessed Assessed No Abnormality -Temperature (Mica-wound Skin No Abnormality No Abnormality No Abnormality Appearance) (Pt Warm) (Pt Warm) (Pt Warm) -Tenderness on Palpation (Mica-wound No No Skin Appearance) -Ulcer Cleansing Rinsed/ Rinsed/ Soap and Water Irrigated with Irrigated with Saline Saline -Foul Odor after Cleansing No No No -Anesthetic Used 5% Lidocaine 5% Lidocaine 5% Lidocaine Gel Gel Gel Left Calf (cm) 31 Left Ankle (cm) 19.1 12/21/23 09:59 Wound Center Nurse 1 #1 L Achilles -Combined with other wound No -Current Size (cm) - Length 1 -Current Size (cm) - Width 0.7 -Current Size (cm) - Depth 0.5 -Total Square Cm 0.7 -Date of Last Picture (Recall this field) -Photo Taken Yes -Epithelialization -Tunneling No -Undermining/Tunneling No -Circular Undermining No -Exudate Amt Large -Exudate Type Serosanguineous -Wound Margin Thickened & Rolled Under -Granulation Amt Medium (34-66%) -Granulation Quality [place] -Slough/Fibrin Yes -Necrosis Amt Medium (34-66%) -Necrotic Tissue Type Adherent Slough -Structure Exposed N/A -Texture (Mica-wound Skin Appearance) Assessed -Moisture (Mica-wound Skin Appearance) Assessed -Color (Mica-wound Skin Appearance) Assessed -Temperature (Mica-wound Skin No Abnormality Appearance) (Pt Warm) -Tenderness on Palpation (Mica-wound No Skin Appearance) -Ulcer Cleansing Wound Cleanser -Foul Odor after Cleansing No -Anesthetic Used 5% Lidocaine Gel Left Calf (cm) Left Ankle (cm) WC - Nurse 2 - General Ulcer CM Notes Start: 11/30/23 09:46 Freq: Status: Active Protocol: Activity Type Activity Date Activity User E-sign Co-sign Detail Recorded Client Recorded Date Recorded By Document 11/30/23 10:09 [id number] 11/30/23 10:10 Document 12/07/23 10:35 0000 12/07/23 10:36 Document 12/14/23 10:28 [facility] [id number] 12/14/23 10:38 [facility] Document 12/21/23 10:27 0000 12/21/23 10:29 11/30/23 12/07/23 12/14/23 10:09 10:35 10:28 Wound Center Nurse 2 #1 L Achilles -Time 10:09 10:35 10:29 -Correct Patient Yes Yes Yes -Correct Side, Site, Position Yes Yes Yes -Correct Procedure Yes Yes Yes -Procedure Performed Yes Yes Yes -Type of Procedure Debridement Debridement Debridement -Clinical Debridement Muscle / Fascia Muscle / Fascia Muscle / Fascia -Tissue Removed Muscle,Fascia Tendon Tendon -Post Debridement (cm) - Length 1.5 1.2 1.8 -Post Debridement (cm) - Width 1.0 1.0 0.7 -Post Debridement (cm) - Depth 0.8 1.2 1 -Total Square (Post) (cm) 1.50 1.20 1.26 -Area of Debridement (cm) - Length 1.5 1.2 1.8 -Area of Debridement (cm) - Width 1.0 1.0 0.7 -Total Square (Area) (cm) 1.50 1.20 1.26 -Tunneling No No No -Undermining/Tunneling No No No -Circular Undermining No No No -Wound/Ulcer Outcome Not Healed Not Healed Not Healed -Ulcer Cleansing Rinsed/ Rinsed/ Rinsed/ Irrigated with Irrigated with Irrigated with Saline Saline Saline -Foul Odor after Cleansing No No No -Bioengineered Tissue No No No -Bleeding Controlled with Pressure Pressure Pressure -Treatment Response Procedure Procedure Procedure Tolerated Well Tolerated Well Tolerated Well -Offloading Yes No -Type of Offloading Total Contact Cast (TCC) - Left ($) -Assistive Device(s) -Debridement - Muscle / Fascia, 1st Yes Yes Yes 20sq cm Pain Scale: 0-10 Numeric Is Patient Pain Free? Yes Yes Yes 12/21/23 10:27 Wound Center Nurse 2 #1 L Achilles -Time 10:27 -Correct Patient Yes -Correct Side, Site, Position Yes -Correct Procedure Yes -Procedure Performed Yes -Type of Procedure Debridement -Clinical Debridement Muscle / Fascia -Tissue Removed Muscle -Post Debridement (cm) - Length 0.9 -Post Debridement (cm) - Width 0.7 -Post Debridement (cm) - Depth 0.8 -Total Square (Post) (cm) 0.63 -Area of Debridement (cm) - Length 0.9 -Area of Debridement (cm) - Width 0.7 -Total Square (Area) (cm) 0.63 -Tunneling No -Undermining/Tunneling No -Circular Undermining No -Wound/Ulcer Outcome Not Healed -Ulcer Cleansing Rinsed/ Irrigated with Saline -Foul Odor after Cleansing No -Bioengineered Tissue No -Bleeding Controlled with Pressure -Treatment Response Procedure Tolerated Well -Offloading No -Type of Offloading -Assistive Device(s) Crutches -Debridement - Muscle / Fascia, 1st Yes 20sq cm Pain Scale: 0-10 Numeric Is Patient Pain Free? Yes - Nurse 3 - General Ulcer D/C NN Start: 11/30/23 09:46 Freq: Status: Active Protocol: Activity Type Activity Date Activity User E-sign Co-sign Detail Recorded Client Recorded Date Recorded By Document 11/30/23 10:21 KW z 11/30/23 10:21 KW Document 12/07/23 10:59 DL [email or web address] 12/07/23 11:01 DL Document 12/10/23 15:26 GM wc 12/10/23 15:27 GM Document 12/14/23 10:49 KW ; 12/14/23 10:50 KW 11/30/23 12/07/23 12/10/23 10:21 10:59 15:26 Wound Care Center Nurse 3 #1 L Achilles -Ulcer Cleansing Rinsed/ Not Cleansed Irrigated with Saline -Foul Odor after Cleansing No No -Negative Pressure Wound Therapy Start -Negative Pressure is Continuous -Primary Dressing Applied Silvercel Hysept ($) -Other Dressing betadine -Primary Dressing Covered/Secured with Dry Gauze & Dry Gauze & Roll Gauze, Roll Gauze, Secured with Secured with Tape Tape -NPWT Application Charge NPWT </= 50 sq cm ($) -Silvercel 1 -Wound Comment(s) Pt to start VAC when available . Left -Compression Wrap Levi Wrap -Other tibigrip Treatment Response Procedure Tolerated Well Vital Signs Temperature (97.8 F-99.1 F) 97.6 F L Temperature Source Temporal Pulse Rate (60-100) 80 Pulse Location Monitor Respiratory Rate (12-18) 16 Respiratory rate source Observation Oxygen Delivery Method Room Air Blood Pressure (90/60-120/80) 90/42 L Blood Pressure Mean (mm Hg) 58 Source Monitor Position Sitting Blood Pressure Location Left Arm Pain Scale: 0-10 Numeric Is Patient Pain Free? Yes Yes Yes WC - Visit Discharge Discharge Condition Stable Stable Stable Ambulatory Status Ambulatory, Ambulatory, Ambulatory, Crutches Crutches Crutches Transportation Private Auto Private Auto Private Auto Medication Reconcilliation completed & No provided to patient/care provider Clinical Summary of Care Provided Yes Facility Type Home Health Orders Sent Yes 12/14/23 10:49 Wound Care Center Nurse 3 #1 L Achilles -Ulcer Cleansing -Foul Odor after Cleansing -Negative Pressure Wound Therapy -Negative Pressure is -Primary Dressing Applied -Other Dressing DAKINS SOAKED GAUZE -Primary Dressing Covered/Secured with Dry Gauze & Roll Gauze, Secured with Tape -NPWT Application Charge -Silvercel -Wound Comment(s) Left -Compression Wrap -Other Treatment Response Vital Signs Temperature (97.8 F-99.1 F) Temperature Source Pulse Rate (60-100) Pulse Location Respiratory Rate (12-18) Respiratory rate source Oxygen Delivery Method Blood Pressure (90/60-120/80) Blood Pressure Mean (mm Hg) Source Position Blood Pressure Location Pain Scale: 0-10 Numeric Is Patient Pain Free? Yes WC - Visit Discharge Discharge Condition Stable Ambulatory Status Ambulatory, Crutches Transportation Private Auto Medication Reconcilliation completed & No provided to patient/care provider Clinical Summary of Care Provided Yes Facility Type Orders Sent Assessment/Plan Assessment/Plan (1) Left ankle pain: CODE(S): M25.572 - Pain in left ankle and joints of left foot QUALIFIERS: Chronicity: acute Qualified Code(s): M25.572 - Pain in left ankle and joints of left foot PLAN: Exam performed. Reviewed prior notes per Dr. Avila. Wound to posterior left Achilles with exposed Achilles tendon noted with infection. Left posterior ankle wound was debrided excisionally down to and including level of Achilles tendon using combination of 15 blade and pickups as well as a 7 mm dermal curette. All nonviable tissue was removed. Topical anesthesia was used. Pre and postdebridement measurements documented nursing notes. Patient tolerated procedure well. Wound culture positive for Staph hominis and anaerobic cocci. Patient continue Keflex. Patient will start additionally doxycycline. Patient is having some heel pain give her a Medrol Dosepak. Discontinue wound VAC due to tendon infection worsening. today wound dressed with dakins/DSD/tubigrip for compression continue non-weightbearing on left assisted by crutches/cam boot Patient to take 81 mg aspirin daily for DVT prophylaxis. Follow-up in 1 week If no improvement next week we will plan for hospital admission intraoperative debridement with possible Achilles tendon reconstruction. (2) Non-pressure chronic ulcer of left ankle with necrosis of muscle: CODE(S): L97.323 - Non-pressure chronic ulcer of left ankle with necrosis of muscle (3) Cellulitis of left lower limb: CODE(S): L03.116 - Cellulitis of left lower limb
[2023-12-28 11:07] VITALS: BP 103/65; PULSE 84; RESP 18; TEMP 36.3; BMI 23.3
--- NOTE | 2023-12-28 11:27 | PN.PCM_ITS ---
History of Present Illness Date of Service: 12/28/23 Progress of Wound: 53-year-old female presents for left posterior Achilles wound in setting of recent percutaneous Achilles repair performed by Dr. Avila 12weeks prior. Patient had total contact cast applied on last visit. Patient due to anxiety and had this removed in the emergency room. Patient presents today with occasional left ankle wound pain. Patient maintain nonweightbearing assisted by crutches with Cam boot. Patient denies any fever chills nausea vomiting chest pain calf pain shortness of breath has no other complaints today. Objective Data Objective Data Vital Signs: Vital Signs Temp Pulse Resp BP O2 Del Method 97.3 F L 84 18 103/65 Room Air 12/28/23 11:07 12/28/23 11:07 12/28/23 11:07 12/28/23 11:07 12/10/23 15:26 Oxygen Delivery Method Room Air Weight: 65.529 kg Body Mass Index (BMI) 23.3 Lab / Micro Data Micro: Microbiology 12/07/23 10:31 Ulcer, Decubitus - Other Gram Stain - Final 12/07/23 10:31 Ulcer, Decubitus - Other Wound Culture - Final Staphylococcus hominis hominis 12/07/23 10:31 Ulcer, Decubitus - Other Anaerobic Culture - Final Anaerobic cocci Physical Exam Narrative Vascular: Dorsalis pedis posterior tibial pulses 2 out of 4 to bilateral lower extremity. Skin well-hydrated, supple with normal texture and turgor. Digital hair growth noted. Capillary fill time less than 3 seconds to digits 1 through 5 bilaterally. No gross edema noted. Neurologic: Light touch protective sensation intact bilateral lower extremity. No evidence of Babinski or clonus. Dermatologic: Full-thickness wound to the posterior left Achilles. This wound extends down to the level of the Achilles. Pre and postdebridement measurements documented nursing notes. There is mild periwound erythema edema and warmth. There is scant drainage noted. Wound base demonstrates exposed Achilles tendon with fibronecrotic appearance. Musculoskeletal: Muscular strength diminished to left Achilles tendon to 4 out of 5. Achilles tendon does appear to remain intact at current. Patient has no pain with calf squeeze bilaterally. No gross deformity noted. Debridement Note Debridement Note Post-Debridement Measurements and Additional Note: Post-Debridement Measurements/Treatment WC - Nurse 1 - General Ulcer Assessment Start: 07/02/24 09:46 Freq: Status: Active Protocol: WC.LOWEXT Activity Type Activity Date Activity User E-sign Co-sign Detail Recorded Client Recorded Date Recorded By Document 11/30/23 09:46 BMF 10.10.25.7 11/30/23 09:57 BMF Document 12/07/23 10:11 KW l 12/07/23 10:15 KW Document 12/10/23 15:26 GM wc 12/10/23 15:27 GM Document 12/14/23 10:02 DL [email or web address] 12/14/23 10:09 DL Document 12/21/23 09:59 RB wound 12/21/23 10:09 RB Document 12/28/23 11:07 DL [email or web address] 12/28/23 11:10 DL 11/30/23 12/07/23 12/10/23 09:46 10:11 15:26 WC - Today's Visit Information Type of service Follow-up Visit Follow-up Visit Nurse-only (Physician/RUNNING RIGGER (Physician/RUNNING RIGGER Visit ) ) Arrival Mode Ambulatory Crutches Ambulatory, Crutches Transfer Assistance None None Patient Identification Verified (Name & Yes Yes Yes ) Patient Requires Transmission-Based No Precautions Height and Weight Body Mass Index (BMI) 23.3 23.3 23.3 BMI Classification Normal Normal Normal Vital Signs Temperature (97.8 F-99.1 F) 97 F L 97.4 F L 97.6 F L Temperature Source Temporal Temporal Temporal Pulse Rate (60-100) 89 89 80 Pulse Location Monitor Monitor Monitor Respiratory Rate (12-18) 16 18 16 Respiratory rate source Observation Observation Observation Oxygen Delivery Method Room Air Room Air Room Air Blood Pressure (90/60-120/80) 103/59 L 112/67 90/42 L Blood Pressure Mean (mm Hg) 73 82 58 Source Monitor Monitor Monitor Position Sitting Semi-Fowlers Sitting Blood Pressure Location Right Arm Left Arm Left Arm History Since Last Visit- (Skip if this is Patient's initial visit) Have you changed medications since your No No No last visit? Any new allergies or adverse reactions No No No Had a fall/change in ADL's that may No No No increase risk of falls Signs or symptoms of abuse and/or No No No neglect since last visit Have you been in the hospital since your No Yes No last visit? Has dressing in place as prescribed Yes Yes Yes Has compression in place as prescribed N/A Yes Yes Has offloadiing in place as prescribed N/A N/A Yes Experienced any changes in pain level or No No No management Left Footwear Removable Cast No Footwear Removable Cast Walker/Walking Walker/Walking Boot Boot Right Footwear Regular Shoe Regular Shoe Regular Shoe Pain Scale: 0-10 Numeric Is Patient Pain Free? Yes Yes Yes R heel -Description -Intensity -Duration (hours) -Pain Behavior -Pain Aggravating Factors -Alleviating Factors/Interventions -Effectiveness of Alleviating Factor/ Intervention 12/14/23 12/21/23 12/28/23 10:02 09:59 11:07 WC - Today's Visit Information Type of service Follow-up Visit Follow-up Visit Follow-up Visit (Physician/RUNNING RIGGER (Physician/RUNNING RIGGER (Physician/RUNNING RIGGER ) ) ) Arrival Mode Ambulatory, Ambulatory, Ambulatory Crutches Crutches Transfer Assistance None None None Patient Identification Verified (Name & Yes Yes Yes ) Patient Requires Transmission-Based No No No Precautions Height and Weight Body Mass Index (BMI) 23.3 23.3 23.3 BMI Classification Normal Normal Normal Vital Signs Temperature (97.8 F-99.1 F) 97 F L 97.5 F L 97.3 F L Temperature Source Temporal Temporal Temporal Pulse Rate (60-100) 82 84 84 Pulse Location Monitor Monitor Monitor Respiratory Rate (12-18) 20 H 18 18 Respiratory rate source Observation Observation Observation Oxygen Delivery Method Blood Pressure (90/60-120/80) 108/73 101/58 L 103/65 Blood Pressure Mean (mm Hg) 84 72 77 Source Monitor Monitor Monitor Position Semi-Fowlers Semi-Fowlers Blood Pressure Location Left Arm Left Arm History Since Last Visit- (Skip if this is Patient's initial visit) Have you changed medications since your No No No last visit? Any new allergies or adverse reactions No No No Had a fall/change in ADL's that may No No No increase risk of falls Signs or symptoms of abuse and/or No No No neglect since last visit Have you been in the hospital since your No No No last visit? Has dressing in place as prescribed Yes Yes Yes Has compression in place as prescribed Yes Yes No Has offloadiing in place as prescribed Yes No No Experienced any changes in pain level or No No No management Left Footwear Right Footwear Pain Scale: 0-10 Numeric Is Patient Pain Free? Yes Yes No R heel -Description Aching -Intensity 4 -Duration (hours) Acute -Pain Behavior Irritability -Pain Aggravating Factors ADL's -Alleviating Factors/Interventions Medication -Effectiveness of Alleviating Factor/ Minimally Intervention effective WC - Nurse 1 - General Ulcer Measurement Start: 11/30/23 09:46 Freq: Status: Active Protocol: Activity Type Activity Date Activity User E-sign Co-sign Detail Recorded Client Recorded Date Recorded By Document 11/30/23 09:46 BMF 10..25.7 11/30/23 09:57 BMF Document 12/07/23 10:11 KW l 12/07/23 10:15 KW Document 12/14/23 10:02 DL 10..25.7 12/14/23 10:09 DL Document 12/21/23 09:59 RB wound 12/21/23 10:09 RB Document 12/28/23 11:07 DL 10..25.7 12/28/23 11:10 DL 11/30/23 12/07/23 12/14/23 09:46 10:11 10:02 Wound Center Nurse 1 #1 L Achilles -Combined with other wound No -Current Size (cm) - Length 0.9 0.9 1 -Current Size (cm) - Width 1 1 0.8 -Current Size (cm) - Depth 0.5 1.2 1.2 -Total Square Cm 0.9 0.9 0.8 -Date of Last Picture (Recall this 11/30/23 12/07/23 field) -Photo Taken Yes No -Epithelialization None Present -Tunneling No -Undermining/Tunneling No -Circular Undermining No -Exudate Amt Medium Medium Medium -Exudate Type Serosanguineous Serosanguineous Serosanguineous -Wound Margin Distinct, Distinct, Distinct, Outline Outline Outline Attached Attached Attached -Granulation Amt Small (1-33%) Small (1-33%) None Present (0 %) -Granulation Quality [place] [employer] -Slough/Fibrin Yes -Necrosis Amt Large (67-100%) Large (67-100%) Large (67-100%) -Necrotic Tissue Type Adherent Slough Adherent Slough Adherent Slough -Structure Exposed Tendon N/A -Texture (Mica-wound Skin Appearance) Assessed Assessed Scarring -Moisture (Mica-wound Skin Appearance) Assessed Assessed Maceration -Color (Mica-wound Skin Appearance) Assessed Assessed No Abnormality -Temperature (Mica-wound Skin No Abnormality No Abnormality No Abnormality Appearance) (Pt Warm) (Pt Warm) (Pt Warm) -Tenderness on Palpation (Mica-wound No No Skin Appearance) -Ulcer Cleansing Rinsed/ Rinsed/ Soap and Water Irrigated with Irrigated with Saline Saline -Foul Odor after Cleansing No No No -Anesthetic Used 5% Lidocaine 5% Lidocaine 5% Lidocaine Gel Gel Gel Left Calf (cm) 31 Left Ankle (cm) 19.1 12/21/23 12/28/23 09:59 11:07 Wound Center Nurse 1 #1 L Achilles -Combined with other wound No No -Current Size (cm) - Length 1 0.8 -Current Size (cm) - Width 0.7 0.5 -Current Size (cm) - Depth 0.5 0.6 -Total Square Cm 0.7 0.40 -Date of Last Picture (Recall this field) -Photo Taken Yes Yes -Epithelialization -Tunneling No No -Undermining/Tunneling No No -Circular Undermining No No -Exudate Amt Large Large -Exudate Type Serosanguineous Serosanguineous -Wound Margin Thickened & Thickened & Rolled Under Rolled Under -Granulation Amt Medium (34-66%) Medium (34-66%) -Granulation Quality [place] [employer]inary [place] [employer] -Slough/Fibrin Yes Yes -Necrosis Amt Medium (34-66%) Medium (34-66%) -Necrotic Tissue Type Adherent Slough Adherent Slough -Structure Exposed N/A N/A -Texture (Mica-wound Skin Appearance) Assessed Assessed, Scarring -Moisture (Mica-wound Skin Appearance) Assessed Assessed -Color (Mica-wound Skin Appearance) Assessed Assessed -Temperature (Mica-wound Skin No Abnormality No Abnormality Appearance) (Pt Warm) (Pt Warm) -Tenderness on Palpation (Mica-wound No No Skin Appearance) -Ulcer Cleansing Wound Cleanser Wound Cleanser -Foul Odor after Cleansing No No -Anesthetic Used 5% Lidocaine 5% Lidocaine Gel Gel Left Calf (cm) Left Ankle (cm) WC - Nurse 2 - General Ulcer CM Notes Start: 11/30/23 09:46 Freq: Status: Active Protocol: Activity Type Activity Date Activity User E-sign Co-sign Detail Recorded Client Recorded Date Recorded By Document 11/30/23 10:09 [id number] 11/30/23 10:10 Document 12/07/23 10:35 0000 12/07/23 10:36 Document 12/14/23 10:28 [facility] [id number] 12/14/23 10:38 [facility] Document 12/21/23 10:27 0000 12/21/23 10:29 Document 12/28/23 11:16 0000 12/28/23 11:20 11/30/23 12/07/23 12/14/23 10:09 10:35 10:28 Wound Center Nurse 2 #1 L Achilles -Time 10:09 10:35 10:29 -Correct Patient Yes Yes Yes -Correct Side, Site, Position Yes Yes Yes -Correct Procedure Yes Yes Yes -Procedure Performed Yes Yes Yes -Type of Procedure Debridement Debridement Debridement -Clinical Debridement Muscle / Fascia Muscle / Fascia Muscle / Fascia -Tissue Removed Muscle,Fascia Tendon Tendon -Post Debridement (cm) - Length 1.5 1.2 1.8 -Post Debridement (cm) - Width 1.0 1.0 0.7 -Post Debridement (cm) - Depth 0.8 1.2 1 -Total Square (Post) (cm) 1.50 1.20 1.26 -Area of Debridement (cm) - Length 1.5 1.2 1.8 -Area of Debridement (cm) - Width 1.0 1.0 0.7 -Total Square (Area) (cm) 1.50 1.20 1.26 -Tunneling No No No -Undermining/Tunneling No No No -Circular Undermining No No No -Wound/Ulcer Outcome Not Healed Not Healed Not Healed -Ulcer Cleansing Rinsed/ Rinsed/ Rinsed/ Irrigated with Irrigated with Irrigated with Saline Saline Saline -Foul Odor after Cleansing No No No -Bioengineered Tissue No No No -Bleeding Controlled with Pressure Pressure Pressure -Treatment Response Procedure Procedure Procedure Tolerated Well Tolerated Well Tolerated Well -Offloading Yes No -Type of Offloading Total Contact Cast (TCC) - Left ($) -Assistive Device(s) -Debridement - Muscle / Fascia, 1st Yes Yes Yes 20sq cm Pain Scale: 0-10 Numeric Is Patient Pain Free? Yes Yes Yes 12/21/23 12/28/23 10:27 11:16 Wound Center Nurse 2 #1 L Achilles -Time 10:27 11:17 -Correct Patient Yes Yes -Correct Side, Site, Position Yes Yes -Correct Procedure Yes Yes -Procedure Performed Yes Yes -Type of Procedure Debridement Debridement -Clinical Debridement Muscle / Fascia Muscle / Fascia -Tissue Removed Muscle Tendon -Post Debridement (cm) - Length 0.9 1.0 -Post Debridement (cm) - Width 0.7 0.7 -Post Debridement (cm) - Depth 0.8 0.8 -Total Square (Post) (cm) 0.63 0.70 -Area of Debridement (cm) - Length 0.9 1.0 -Area of Debridement (cm) - Width 0.7 0.7 -Total Square (Area) (cm) 0.63 0.70 -Tunneling No No -Undermining/Tunneling No No -Circular Undermining No No -Wound/Ulcer Outcome Not Healed Not Healed -Ulcer Cleansing Rinsed/ Rinsed/ Irrigated with Irrigated with Saline Saline -Foul Odor after Cleansing No No -Bioengineered Tissue No No -Bleeding Controlled with Pressure Pressure -Treatment Response Procedure Procedure Tolerated Well Tolerated Well -Offloading No Yes -Type of Offloading Camwalker -Assistive Device(s) Crutches Wheelchair -Debridement - Muscle / Fascia, 1st Yes Yes 20sq cm Pain Scale: 0-10 Numeric Is Patient Pain Free? Yes Yes - Nurse 3 - General Ulcer D/C NN Start: 11/30/23 09:46 Freq: Status: Active Protocol: Activity Type Activity Date Activity User E-sign Co-sign Detail Recorded Client Recorded Date Recorded By Document 11/30/23 10:21 KW z 11/30/23 10:21 KW Document 12/07/23 10:59 DL [email or web address] 12/07/23 11:01 DL Document 12/10/23 15:26 GM wc 12/10/23 15:27 GM Document 12/14/23 10:49 KW ; 12/14/23 10:50 KW Document 12/21/23 10:35 JF 0000 12/21/23 10:35 JF 11/30/23 12/07/23 12/10/23 10:21 10:59 15:26 Wound Care Center Nurse 3 #1 L Achilles -Ulcer Cleansing Rinsed/ Not Cleansed Irrigated with Saline -Foul Odor after Cleansing No No -Negative Pressure Wound Therapy Start -Negative Pressure is Continuous -Primary Dressing Applied Silvercel Hysept ($) -Other Dressing betadine -Primary Dressing Covered/Secured with Dry Gauze & Dry Gauze & Roll Gauze, Roll Gauze, Secured with Secured with Tape Tape -NPWT Application Charge NPWT </= 50 sq cm ($) -Silvercel 1 -Wound Comment(s) Pt to start VAC when available . Left -Compression Wrap Levi Wrap -Other tibigrip Treatment Response Procedure Tolerated Well Vital Signs Temperature (97.8 F-99.1 F) 97.6 F L Temperature Source Temporal Pulse Rate (60-100) 80 Pulse Location Monitor Respiratory Rate (12-18) 16 Respiratory rate source Observation Oxygen Delivery Method Room Air Blood Pressure (90/60-120/80) 90/42 L Blood Pressure Mean (mm Hg) 58 Source Monitor Position Sitting Blood Pressure Location Left Arm Pain Scale: 0-10 Numeric Is Patient Pain Free? Yes Yes Yes WC - Visit Discharge Discharge Condition Stable Stable Stable Ambulatory Status Ambulatory, Ambulatory, Ambulatory, Crutches Crutches Crutches Transportation Private Auto [employer] Auto [employer] Auto Medication Reconcilliation completed & No provided to patient/care provider Clinical Summary of Care Provided Yes Facility Type Home Health Orders Sent Yes 12/14/23 12/21/23 10:49 10:35 Wound Care Center Nurse 3 #1 L Achilles -Ulcer Cleansing Rinsed/ Irrigated with Saline -Foul Odor after Cleansing No -Negative Pressure Wound Therapy -Negative Pressure is -Primary Dressing Applied -Other Dressing DAKINS SOAKED dakin's GAUZE -Primary Dressing Covered/Secured with Dry Gauze & Dry Gauze, Roll Gauze, Secured with Secured with Tape Tape -NPWT Application Charge -Silvercel -Wound Comment(s) Left -Compression Wrap -Other Treatment Response Vital Signs Temperature (97.8 F-99.1 F) Temperature Source Pulse Rate (60-100) Pulse Location Respiratory Rate (12-18) Respiratory rate source Oxygen Delivery Method Blood Pressure (90/60-120/80) Blood Pressure Mean (mm Hg) Source Position Blood Pressure Location Pain Scale: 0-10 Numeric Is Patient Pain Free? Yes Yes WC - Visit Discharge Discharge Condition Stable Stable Ambulatory Status Ambulatory, Crutches Crutches Transportation Private Auto Private Auto Medication Reconcilliation completed & No Yes provided to patient/care provider Clinical Summary of Care Provided Yes Yes Facility Type Orders Sent Assessment/Plan Assessment/Plan (1) Left ankle pain: CODE(S): M25.572 - Pain in left ankle and joints of left foot QUALIFIERS: Chronicity: acute Qualified Code(s): M25.572 - Pain in left ankle and joints of left foot PLAN: Exam performed. Reviewed prior notes per Dr. Avila. Wound to posterior left Achilles with exposed Achilles tendon noted with infection. Left posterior ankle wound was debrided excisionally down to and including level of Achilles tendon using combination of 15 blade and pickups as well as a 7 mm dermal curette. All nonviable tissue was removed. Topical anesthesia was used. Pre and postdebridement measurements documented nursing notes. Patient tolerated procedure well. Wound improving no additional antibiotics at current. today wound dressed with dakins/DSD/tubigrip for compression continue non-weightbearing on left assisted by crutches/cam boot Patient to take 81 mg aspirin daily for DVT prophylaxis. Follow-up in 1 week If no improvement next week we will plan for hospital admission intraoperative debridement with possible Achilles tendon reconstruction. (2) Non-pressure chronic ulcer of left ankle with necrosis of muscle: CODE(S): L97.323 - Non-pressure chronic ulcer of left ankle with necrosis of muscle (3) Cellulitis of left lower limb: CODE(S): L03.116 - Cellulitis of left lower limb
--- NOTE | 2023-12-29 09:51 | WC ---
PHOTO 12/21/23 LT MENDOZA
== END 2023-12-29 23:59 | disposition home or self-care (01) ==
LOC: WC 11:30
PROVIDERS: PCP Student in an Organized Health Care Education/Training Program; Referring Provider Podiatrist Foot & Ankle Surgery; Visit Provider Podiatrist
DX: L97.323 Non-pressure chronic ulcer of left ankle with necrosis of muscle (principal); L03.116 Cellulitis of left lower limb; M25.572 Pain in left ankle and joints of left foot
CPT/HCPCS: 11043; 29445; 87070; 87075; 87077; 87186; 87205; 97605

== ENCOUNTER 2024-01-25 11:15 | Outpatient (RCR) | payer MEDICAID, SELFPAY ==
[2023-12-30 00:14] VITALS: BP 101/55; PULSE 79; RESP 18; TEMP 36.3; BMI 23.3
[2024-01-11 10:17] VITALS: BP 118/59; PULSE 88; RESP 18; TEMP 35.6; BMI 23.3
--- NOTE | 2024-01-11 10:43 | PCM.WC.PN ---
History of Present Illness Date of Service: 01/11/24 Progress of Wound: Follow-up left Achilles wound. Denies constitutional symptoms. Compliant with nonweightbearing. Compliant with daily Dakin's dressings. No new changes. Objective Data Objective Data Vital Signs: Vital Signs Temp Pulse Resp BP O2 Del Method 96.0 F L 88 18 118/59 L Room Air 01/11/24 10:17 01/11/24 10:17 01/11/24 10:17 01/11/24 10:17 01/11/24 10:17 Oxygen Delivery Method Room Air Weight: 65.529 kg Body Mass Index (BMI) 23.3 Physical Exam Narrative Vascular: Dorsalis pedis posterior tibial pulses 2 out of 4 to bilateral lower extremity. Skin well-hydrated, supple with normal texture and turgor. Digital hair growth noted. Capillary fill time less than 3 seconds to digits 1 through 5 bilaterally. No gross edema noted. Neurologic: Light touch protective sensation intact bilateral lower extremity. No evidence of Babinski or clonus. Dermatologic: Full-thickness wound to the posterior left Achilles. This wound extends down to the level of the subcutaneous tissue. Pre and postdebridement measurements documented nursing notes. There is mild periwound erythema edema and warmth. No signs of infection. Musculoskeletal: Muscular strength diminished to left Achilles tendon to 4 out of 5. Achilles tendon does appear to remain intact at current. Patient has no pain with calf squeeze bilaterally. No gross deformity noted. Debridement Note Debridement Note Post-Debridement Measurements and Additional Note: Post-Debridement Measurements/Treatment - Nurse 1 - General Ulcer Assessment Start: 01/11/24 10:17 Freq: Status: Active Protocol: [email or web address] Activity Type Activity Date Activity User E-sign Co-sign Detail Recorded Client Recorded Date Recorded By Document 01/11/24 10:17 KATHARINE gfj 01/11/24 10:27 KW 01/11/24 10:17 - Today's Visit Information Type of service Follow-up Visit (Physician/PRESTIDIGITATOR ) Arrival Mode Ambulatory, Crutches Patient Identification Verified (Name & Yes ) Height and Weight Body Mass Index (BMI) 23.3 BMI Classification Normal Vital Signs Temperature (97.8 F-99.1 F) 96.0 F L Temperature Source Temporal Pulse Rate (60-100) 88 Pulse Location Monitor Respiratory Rate (12-18) 18 Respiratory rate source Observation Oxygen Delivery Method Room Air Blood Pressure (90/60-120/80) 118/59 L Blood Pressure Mean (mm Hg) 78 Source Monitor Position Sitting Blood Pressure Location Right Arm History Since Last Visit- (Skip if this is Patient's initial visit) Have you changed medications since your No last visit? Any new allergies or adverse reactions No Had a fall/change in ADL's that may No increase risk of falls Signs or symptoms of abuse and/or No neglect since last visit Have you been in the hospital since your No last visit? Has dressing in place as prescribed Yes Has compression in place as prescribed Yes Has offloadiing in place as prescribed N/A Experienced any changes in pain level or No management Left Footwear Regular Shoe Right Footwear Regular Shoe Pain Scale: 0-10 Numeric Is Patient Pain Free? Yes WC - Nurse 1 - General Ulcer Measurement Start: 01/11/24 10:17 Freq: Status: Active Protocol: Activity Type Activity Date Activity User E-sign Co-sign Detail Recorded Client Recorded Date Recorded By Document 01/11/24 10:17 KW ann mariej 01/11/24 10:27 KW 01/11/24 10:17 Wound Center Nurse 1 #1 L Achilles -Current Size (cm) - Length 1.1 -Current Size (cm) - Width 0.4 -Current Size (cm) - Depth 0.5 -Total Square Cm 0.44 -Date of Last Picture (Recall this 01/11/24 field) -Exudate Amt Small -Exudate Type Serosanguineous -Wound Margin Distinct, Outline Attached -Granulation Amt Medium (34-66%) -Granulation Quality [place] -Necrosis Amt Medium (34-66%) -Necrotic Tissue Type Adherent Slough -Texture (Mica-wound Skin Appearance) Assessed -Moisture (Mica-wound Skin Appearance) Assessed -Color (Mica-wound Skin Appearance) Assessed -Temperature (Mica-wound Skin No Abnormality Appearance) (Pt Warm) -Tenderness on Palpation (Mica-wound No Skin Appearance) -Ulcer Cleansing Rinsed/ Irrigated with Saline -Foul Odor after Cleansing No -Anesthetic Used 4% Lidocaine Solution CLARA - Nurse 2 - General Ulcer CM Notes Start: 01/11/24 10:17 Freq: Status: Active Protocol: Activity Type Activity Date Activity User E-sign Co-sign Detail Recorded Client Recorded Date Recorded By Document 01/11/24 10:33 JF 0000 01/11/24 10:35 JF 01/11/24 10:33 Wound Center Nurse 2 -Time 10:33 -Correct Patient Yes -Correct Side, Site, Position Yes -Correct Procedure Yes -Procedure Performed Yes -Type of Procedure Debridement -Clinical Debridement Subcutaneous -Tissue Removed Subcutaneous -Post Debridement (cm) - Length 1.1 -Post Debridement (cm) - Width 0.4 -Post Debridement (cm) - Depth 0.9 -Total Square (Post) (cm) 0.44 -Area of Debridement (cm) - Length 1.1 -Area of Debridement (cm) - Width 0.4 -Total Square (Area) (cm) 0.44 -Tunneling No -Undermining/Tunneling No -Circular Undermining No -Wound/Ulcer Outcome Not Healed -Ulcer Cleansing Rinsed/ Irrigated with Saline -Foul Odor after Cleansing No -Bioengineered Tissue No -Bleeding Controlled with Pressure -Treatment Response Procedure Not Tolerated Well -Offloading No -Debridement - Subq, 1st 20sq cm Yes Pain Scale: 0-10 Numeric Is Patient Pain Free? Yes Assessment/Plan Assessment/Plan (1) Left ankle pain: CODE(S): M25.572 - Pain in left ankle and joints of left foot QUALIFIERS: Chronicity: acute Qualified Code(s): M25.572 - Pain in left ankle and joints of left foot PLAN: Exam performed. Reviewed prior notes per Dr. Gomez. Wound to posterior left Achilles down to subcutaneous tissue Left posterior ankle wound was debrided excisionally down to and including level of subcutaneous tissue using combination of 15 blade and pickups as well as a 7 mm dermal curette. All nonviable tissue was removed. Topical anesthesia was used. Pre and postdebridement measurements documented nursing notes. Patient tolerated procedure well. Wound improving no additional antibiotics at current. today wound dressed with dakins/DSD/tubigrip for compression continue non-weightbearing on left assisted by crutches/cam boot Patient to take 81 mg aspirin daily for DVT prophylaxis. Follow-up in 1 week (2) Non-pressure chronic ulcer of left ankle with necrosis of muscle: CODE(S): L97.323 - Non-pressure chronic ulcer of left ankle with necrosis of muscle (3) Cellulitis of left lower limb: CODE(S): L03.116 - Cellulitis of left lower limb
[2024-01-18 09:52] VITALS: BP 126/73; PULSE 99; RESP 18; TEMP 35.8; BMI 23.3
--- NOTE | 2024-01-18 10:50 | PCM.WC.PN ---
History of Present Illness Date of Service: 01/18/24 Progress of Wound: Follow-up left Achilles wound. Denies constitutional symptoms. Compliant with nonweightbearing. Compliant with daily Dakin's dressings. No new changes. Objective Data Objective Data Vital Signs: Vital Signs Temp Pulse Resp BP O2 Del Method 96.5 F L 99 18 126/73 H Room Air 01/18/24 09:52 01/18/24 09:52 01/18/24 09:52 01/18/24 09:52 01/11/24 10:17 Oxygen Delivery Method Room Air Weight: 65.529 kg Body Mass Index (BMI) 23.3 Physical Exam Narrative Vascular: Dorsalis pedis posterior tibial pulses 2 out of 4 to bilateral lower extremity. Skin well-hydrated, supple with normal texture and turgor. Digital hair growth noted. Capillary fill time less than 3 seconds to digits 1 through 5 bilaterally. No gross edema noted. Neurologic: Light touch protective sensation intact bilateral lower extremity. No evidence of Babinski or clonus. Dermatologic: Full-thickness wound to the posterior left Achilles. This wound extends down to the level of the subcutaneous tissue. Pre and postdebridement measurements documented nursing notes. There is mild periwound erythema edema and warmth. No signs of infection. Musculoskeletal: Muscular strength diminished to left Achilles tendon to 4 out of 5. Achilles tendon does appear to remain intact at current. Patient has no pain with calf squeeze bilaterally. No gross deformity noted. Debridement Note Debridement Note Post-Debridement Measurements and Additional Note: Post-Debridement Measurements/Treatment - Nurse 1 - General Ulcer Assessment Start: 01/11/24 10:17 Freq: Status: Active Protocol: [email or web address] Activity Type Activity Date Activity User E-sign Co-sign Detail Recorded Client Recorded Date Recorded By Document 01/11/24 10:17 KW gfj 01/11/24 10:27 KW Document 01/18/24 09:52 RB [id number] 01/18/24 09:54 RB 01/11/24 01/18/24 10:17 09:52 - Today's Visit Information Type of service Follow-up Visit Follow-up Visit (Physician/BRAND MARKETING COORDINATOR (Physician/BRAND MARKETING COORDINATOR ) ) Arrival Mode Ambulatory, Ambulatory Crutches Transfer Assistance None Patient Identification Verified (Name & Yes Yes ) Patient Requires Transmission-Based No Precautions Height and Weight Body Mass Index (BMI) 23.3 23.3 BMI Classification Normal Normal Vital Signs Temperature (97.8 F-99.1 F) 96.0 F L 96.5 F L Temperature Source Temporal Temporal Pulse Rate (60-100) 88 99 Pulse Location Monitor Monitor Respiratory Rate (12-18) 18 18 Respiratory rate source Observation Observation Oxygen Delivery Method Room Air Blood Pressure (90/60-120/80) 118/59 L 126/73 H Blood Pressure Mean (mm Hg) 78 90 Source Monitor Monitor Position Sitting Supine Blood Pressure Location Right Arm Right Arm History Since Last Visit- (Skip if this is Patient's initial visit) Have you changed medications since your No No last visit? Any new allergies or adverse reactions No No Had a fall/change in ADL's that may No No increase risk of falls Signs or symptoms of abuse and/or No No neglect since last visit Have you been in the hospital since your No No last visit? Has dressing in place as prescribed Yes Yes Has compression in place as prescribed Yes No Has offloadiing in place as prescribed N/A No Experienced any changes in pain level or No No management Left Footwear Regular Shoe Right Footwear Regular Shoe Pain Scale: 0-10 Numeric Is Patient Pain Free? Yes Yes WC - Nurse 1 - General Ulcer Measurement Start: 01/11/24 10:17 Freq: Status: Active Protocol: Activity Type Activity Date Activity User E-sign Co-sign Detail Recorded Client Recorded Date Recorded By Document 01/11/24 10:17 KW gfj 01/11/24 10:27 KW Document 01/18/24 09:52 RB [id number] 01/18/24 09:54 RB 01/11/24 01/18/24 10:17 09:52 Wound Center Nurse 1 #1 L Achilles -Combined with other wound No -Current Size (cm) - Length 1.1 1 -Current Size (cm) - Width 0.4 0.4 -Current Size (cm) - Depth 0.5 0.5 -Total Square Cm 0.44 0.4 -Date of Last Picture (Recall this 01/11/24 field) -Photo Taken Yes -Tunneling No -Undermining/Tunneling No -Circular Undermining No -Exudate Amt Small Medium -Exudate Type Serosanguineous Serosanguineous -Wound Margin Distinct, Thickened & Outline Rolled Under Attached -Granulation Amt Medium (34-66%) Medium (34-66%) -Granulation Quality Maria Antonia Maria Antonia -Slough/Fibrin Yes -Necrosis Amt Medium (34-66%) Medium (34-66%) -Necrotic Tissue Type Adherent Slough Adherent Slough -Structure Exposed N/A -Texture (Mica-wound Skin Appearance) Assessed Assessed, Scarring -Moisture (Mica-wound Skin Appearance) Assessed Assessed -Color (Mica-wound Skin Appearance) Assessed Assessed -Temperature (Mica-wound Skin No Abnormality No Abnormality Appearance) (Pt Warm) (Pt Warm) -Tenderness on Palpation (Mica-wound No No Skin Appearance) -Ulcer Cleansing Rinsed/ Wound Cleanser Irrigated with Saline -Foul Odor after Cleansing No Yes -Anesthetic Used 4% Lidocaine 5% Lidocaine Solution Gel WC - Nurse 2 - General Ulcer CM Notes Start: 01/11/24 10:17 Freq: Status: Active Protocol: Activity Type Activity Date Activity User E-sign Co-sign Detail Recorded Client Recorded Date Recorded By Document 01/11/24 10:33 0000 01/11/24 10:35 Document 01/18/24 10:13 [id number] 01/18/24 10:15 01/11/24 01/18/24 10:33 10:13 Wound Center Nurse 2 #1 L Achilles -Time 10:33 10:13 -Correct Patient Yes Yes -Correct Side, Site, Position Yes Yes -Correct Procedure Yes Yes -Procedure Performed Yes Yes -Type of Procedure Debridement Debridement -Clinical Debridement Subcutaneous Subcutaneous -Tissue Removed Subcutaneous Subcutaneous -Post Debridement (cm) - Length 1.1 1.0 -Post Debridement (cm) - Width 0.4 0.3 -Post Debridement (cm) - Depth 0.9 0.2 -Total Square (Post) (cm) 0.44 0.30 -Area of Debridement (cm) - Length 1.1 1.0 -Area of Debridement (cm) - Width 0.4 0.3 -Total Square (Area) (cm) 0.44 0.30 -Tunneling No No -Undermining/Tunneling No No -Circular Undermining No No -Wound/Ulcer Outcome Not Healed Not Healed -Ulcer Cleansing Rinsed/ Rinsed/ Irrigated with Irrigated with Saline Saline -Foul Odor after Cleansing No No -Bioengineered Tissue No No -Bleeding Controlled with Pressure Pressure -Treatment Response Procedure Not Procedure Tolerated Well Tolerated Well -Offloading No No -Debridement - Subq, 1st 20sq cm Yes Yes Pain Scale: 0-10 Numeric Is Patient Pain Free? Yes Yes WC - Nurse 3 - General Ulcer D/C NN Start: 01/11/24 10:17 Freq: Status: Active Protocol: Activity Type Activity Date Activity User E-sign Co-sign Detail Recorded Client Recorded Date Recorded By Document 01/11/24 10:50 MT [id number] 01/11/24 10:52 MT 01/11/24 10:50 Wound Care Center Nurse 3 #1 L Achilles -Other Dressing dakins packed into gauze with foam -Mepilex Border 1 Left -Tubular Bandage Single Layer -Size of Tubigrip Used Size C -Size C ($) 1 Pain Scale: 0-10 Numeric Is Patient Pain Free? Yes WC - Visit Discharge Discharge Condition Stable Ambulatory Status Ambulatory Transportation Private Auto Medication Reconcilliation completed & No provided to patient/care provider Clinical Summary of Care Provided Yes Assessment/Plan Assessment/Plan (1) Left ankle pain: CODE(S): M25.572 - Pain in left ankle and joints of left foot QUALIFIERS: Chronicity: acute Qualified Code(s): M25.572 - Pain in left ankle and joints of left foot PLAN: Exam performed. Wound to posterior left Achilles down to subcutaneous tissue -improving Left posterior ankle wound was debrided excisionally down to and including level of subcutaneous tissue using combination of 15 blade and pickups as well as a 7 mm dermal curette. All nonviable tissue was removed. Topical anesthesia was used. Pre and postdebridement measurements documented nursing notes. Patient tolerated procedure well. Wound improving no additional antibiotics at current. today wound dressed with dakins/DSD/tubigrip for compression continue non-weightbearing on left assisted by crutches/cam boot Patient to take 81 mg aspirin daily for DVT prophylaxis. Follow-up in 1 week (2) Non-pressure chronic ulcer of left ankle with necrosis of muscle: CODE(S): L97.323 - Non-pressure chronic ulcer of left ankle with necrosis of muscle (3) Cellulitis of left lower limb: CODE(S): L03.116 - Cellulitis of left lower limb
--- NOTE | 2024-01-20 11:54 | WC ---
PHOTO 01/11/24 LT MENDOZA
--- NOTE | 2024-01-20 11:58 | WC ---
PHOTO 01/18/24 LEFT ACHILLES
[2024-01-25 11:37] VITALS: BP 124/48; PULSE 93; RESP 18; TEMP 36.3; BMI 23.3
--- NOTE | 2024-01-25 11:52 | PCM.WC.PN ---
History of Present Illness Date of Service: 01/25/24 Progress of Wound: Follow-up left Achilles wound. Denies constitutional symptoms. Compliant with nonweightbearing. Compliant with daily Dakin's dressings. No new changes. Objective Data Objective Data Vital Signs: Vital Signs Temp Pulse Resp BP O2 Del Method 97.3 F L 93 18 124/48 H Room Air 01/25/24 11:37 01/25/24 11:37 01/25/24 11:37 01/25/24 11:37 01/25/24 11:37 Oxygen Delivery Method Room Air Weight: 65.529 kg Body Mass Index (BMI) 23.3 Physical Exam Narrative Vascular: Dorsalis pedis posterior tibial pulses 2 out of 4 to bilateral lower extremity. Skin well-hydrated, supple with normal texture and turgor. Digital hair growth noted. Capillary fill time less than 3 seconds to digits 1 through 5 bilaterally. No gross edema noted. Neurologic: Light touch protective sensation intact bilateral lower extremity. No evidence of Babinski or clonus. Dermatologic: Full-thickness wound to the posterior left Achilles. This wound extends down to the level of the subcutaneous tissue. Pre and postdebridement measurements documented nursing notes. There is mild periwound erythema edema and warmth. No signs of infection. Musculoskeletal: Muscular strength diminished to left Achilles tendon to 4 out of 5. Achilles tendon does appear to remain intact at current. Patient has no pain with calf squeeze bilaterally. No gross deformity noted. Debridement Note Debridement Note Post-Debridement Measurements and Additional Note: Post-Debridement Measurements/Treatment - Nurse 1 - General Ulcer Assessment Start: 01/11/24 10:17 Freq: Status: Active Protocol: ISAAC Activity Type Activity Date Activity User E-sign Co-sign Detail Recorded Client Recorded Date Recorded By Document 01/11/24 10:17 KW gfj 01/11/24 10:27 KW Document 01/18/24 09:52 RB [id number] 01/18/24 09:54 RB Document 01/25/24 11:37 KW [id number] 01/25/24 11:41 KW 01/11/24 01/18/24 01/25/24 10:17 09:52 11:37 - Today's Visit Information Type of service Follow-up Visit Follow-up Visit Follow-up Visit (Physician/FIRE ALARM DISPATCHER (Physician/FIRE ALARM DISPATCHER (Physician/FIRE ALARM DISPATCHER ) ) ) Arrival Mode Ambulatory, Ambulatory Ambulatory, Crutches Crutches Transfer Assistance None Patient Identification Verified (Name & Yes Yes Yes ) Patient Requires Transmission-Based No Precautions Height and Weight Body Mass Index (BMI) 23.3 23.3 23.3 BMI Classification Normal Normal Normal Vital Signs Temperature (97.8 F-99.1 F) 96.0 F L 96.5 F L 97.3 F L Temperature Source Temporal Temporal Temporal Pulse Rate (60-100) 88 99 93 Pulse Location Monitor Monitor Monitor Respiratory Rate (12-18) 18 18 18 Respiratory rate source Observation Observation Observation Oxygen Delivery Method Room Air Room Air Blood Pressure (90/60-120/80) 118/59 L 126/73 H 124/48 H Blood Pressure Mean (mm Hg) 78 90 73 Source Monitor Monitor Monitor Position Sitting Supine Sitting Blood Pressure Location Right Arm Right Arm Left Arm History Since Last Visit- (Skip if this is Patient's initial visit) Have you changed medications since your No No No last visit? Any new allergies or adverse reactions No No No Had a fall/change in ADL's that may No No No increase risk of falls Signs or symptoms of abuse and/or No No No neglect since last visit Have you been in the hospital since your No No No last visit? Has dressing in place as prescribed Yes Yes Yes Has compression in place as prescribed Yes No Yes Has offloadiing in place as prescribed N/A No N/A Experienced any changes in pain level or No No No management Left Footwear Regular Shoe Regular Shoe Right Footwear Regular Shoe Regular Shoe Pain Scale: 0-10 Numeric Is Patient Pain Free? Yes Yes Yes WC - Nurse 1 - General Ulcer Measurement Start: 01/11/24 10:17 Freq: Status: Active Protocol: Activity Type Activity Date Activity User E-sign Co-sign Detail Recorded Client Recorded Date Recorded By Document 01/11/24 10:17 KW gfj 01/11/24 10:27 KW Document 01/18/24 09:52 RB [id number] 01/18/24 09:54 RB Document 01/25/24 11:37 KW [id number] 01/25/24 11:41 KW 01/11/24 01/18/24 01/25/24 10:17 09:52 11:37 Wound Center Nurse 1 #1 L Achilles -Combined with other wound No -Current Size (cm) - Length 1.1 1 1.1 -Current Size (cm) - Width 0.4 0.4 0.3 -Current Size (cm) - Depth 0.5 0.5 0.4 -Total Square Cm 0.44 0.4 0.33 -Date of Last Picture (Recall this 01/11/24 field) -Photo Taken Yes -Tunneling No -Undermining/Tunneling No -Circular Undermining No -Exudate Amt Small Medium Small -Exudate Type Serosanguineous Serosanguineous Serosanguineous -Wound Margin Distinct, Thickened & Distinct, Outline Rolled Under Outline Attached Attached -Granulation Amt Medium (34-66%) Medium (34-66%) None Present (0 %) -Granulation Quality Amber Amber -Slough/Fibrin Yes -Necrosis Amt Medium (34-66%) Medium (34-66%) Large (67-100%) -Necrotic Tissue Type Adherent Slough Adherent Slough Adherent Slough -Structure Exposed N/A -Texture (Mica-wound Skin Appearance) Assessed Assessed, Assessed Scarring -Moisture (Mica-wound Skin Appearance) Assessed Assessed Assessed -Color (Mica-wound Skin Appearance) Assessed Assessed Assessed -Temperature (Mica-wound Skin No Abnormality No Abnormality No Abnormality Appearance) (Pt Warm) (Pt Warm) (Pt Warm) -Tenderness on Palpation (Mica-wound No No No Skin Appearance) -Ulcer Cleansing Rinsed/ Wound Cleanser Rinsed/ Irrigated with Irrigated with Saline Saline -Foul Odor after Cleansing No Yes No -Anesthetic Used 4% Lidocaine 5% Lidocaine 5% Lidocaine Solution Gel Gel WC - Nurse 2 - General Ulcer CM Notes Start: 01/11/24 10:17 Freq: Status: Active Protocol: Activity Type Activity Date Activity User E-sign Co-sign Detail Recorded Client Recorded Date Recorded By Document 01/11/24 10:33 0000 01/11/24 10:35 Document 01/18/24 10:13 [id number] 01/18/24 10:15 Document 01/25/24 11:45 [id number] 01/25/24 11:46 01/11/24 01/18/24 01/25/24 10:33 10:13 11:45 Wound Center Nurse 2 #1 L Achilles -Time 10:33 10:13 11:45 -Correct Patient Yes Yes Yes -Correct Side, Site, Position Yes Yes Yes -Correct Procedure Yes Yes Yes -Procedure Performed Yes Yes Yes -Type of Procedure Debridement Debridement Debridement -Clinical Debridement Subcutaneous Subcutaneous Subcutaneous -Tissue Removed Subcutaneous Subcutaneous Subcutaneous -Post Debridement (cm) - Length 1.1 1.0 0.8 -Post Debridement (cm) - Width 0.4 0.3 0.2 -Post Debridement (cm) - Depth 0.9 0.2 0.3 -Total Square (Post) (cm) 0.44 0.30 0.16 -Area of Debridement (cm) - Length 1.1 1.0 0.8 -Area of Debridement (cm) - Width 0.4 0.3 0.2 -Total Square (Area) (cm) 0.44 0.30 0.16 -Tunneling No No No -Undermining/Tunneling No No No -Circular Undermining No No No -Wound/Ulcer Outcome Not Healed Not Healed Not Healed -Ulcer Cleansing Rinsed/ Rinsed/ Rinsed/ Irrigated with Irrigated with Irrigated with Saline Saline Saline -Foul Odor after Cleansing No No No -Bioengineered Tissue No No No -Bleeding Controlled with Pressure Pressure Pressure -Treatment Response Procedure Not Procedure Procedure Tolerated Well Tolerated Well Tolerated Well -Offloading No No No -Debridement - Subq, 1st 20sq cm Yes Yes Yes Pain Scale: 0-10 Numeric Is Patient Pain Free? Yes Yes Yes - Nurse 3 - General Ulcer D/C NN Start: 01/11/24 10:17 Freq: Status: Active Protocol: Activity Type Activity Date Activity User E-sign Co-sign Detail Recorded Client Recorded Date Recorded By Document 01/11/24 10:50 [id number] 01/11/24 10:52 CT 01/11/24 10:50 Wound Care Center Nurse 3 #1 L Achilles -Other Dressing dakins packed into gauze with foam -Mepilex Border 1 Left -Tubular Bandage Single Layer -Size of Tubigrip Used Size C -Size C ($) 1 Pain Scale: 0-10 Numeric Is Patient Pain Free? Yes - Visit Discharge Discharge Condition Stable Ambulatory Status Ambulatory Transportation Private Auto Medication Reconcilliation completed & No provided to patient/care provider Clinical Summary of Care Provided Yes Assessment/Plan Assessment/Plan (1) Left ankle pain: CODE(S): M25.572 - Pain in left ankle and joints of left foot QUALIFIERS: Chronicity: acute Qualified Code(s): M25.572 - Pain in left ankle and joints of left foot PLAN: Exam performed. Wound to posterior left Achilles down to subcutaneous tissue -improving Left posterior ankle wound was debrided excisionally down to and including level of subcutaneous tissue using combination of 15 blade and pickups as well as a 7 mm dermal curette. All nonviable tissue was removed. Topical anesthesia was used. Pre and postdebridement measurements documented nursing notes. Patient tolerated procedure well. Wound improving no additional antibiotics at current. today wound dressed with dakins/DSD/tubigrip for compression continue non-weightbearing on left assisted by crutches/cam boot Patient to take 81 mg aspirin daily for DVT prophylaxis. Follow-up in 1 week (2) Non-pressure chronic ulcer of left ankle with necrosis of muscle: CODE(S): L97.323 - Non-pressure chronic ulcer of left ankle with necrosis of muscle (3) Cellulitis of left lower limb: CODE(S): L03.116 - Cellulitis of left lower limb
== END 2024-01-29 23:59 | disposition home or self-care (01) ==
LOC: WC 11:15
PROVIDERS: PCP Student in an Organized Health Care Education/Training Program; Referring Provider Podiatrist Foot & Ankle Surgery; Visit Provider Podiatrist
DX: L97.323 Non-pressure chronic ulcer of left ankle with necrosis of muscle (principal); L03.116 Cellulitis of left lower limb; Z79.899 Other long term (current) drug therapy
CPT/HCPCS: 11042

== ENCOUNTER 2024-02-22 11:15 | Outpatient (RCR) | payer MEDICAID, SELFPAY ==
[2024-01-30 00:15] VITALS: BP 101/55; PULSE 79; RESP 18; TEMP 36.3; BMI 23.3
[2024-02-01 10:18] VITALS: BP 122/60; PULSE 85; RESP 16; TEMP 35.8; BMI 23.3
[2024-02-15 09:35] VITALS: BP 139/60; PULSE 90; RESP 18; TEMP 36.6; BMI 23.3
[2024-02-22 11:23] VITALS: BP 114/72; PULSE 81; RESP 18; TEMP 36.2; BMI 23.3
== END 2024-02-22 11:44 | disposition home or self-care (01) ==
LOC: WC 11:15
PROVIDERS: PCP Student in an Organized Health Care Education/Training Program; Referring Provider Podiatrist Foot & Ankle Surgery; Visit Provider Podiatrist
DX: L97.322 Non-pressure chronic ulcer of left ankle with fat layer exposed (principal); M25.572 Pain in left ankle and joints of left foot; Z79.899 Other long term (current) drug therapy
CPT/HCPCS: 11042; 99213; G0463

== ENCOUNTER 2024-03-23 11:04 | Day surgery (SDC) | payer MEDICAID, SELFPAY ==
--- NOTE | 2024-02-22 11:34 | PN.PCM_ITS ---
History of Present Illness Date of Service: 02/22/24 Chief Complaint: Left Achilles ulcer Physical Exam Narrative Neurovascular status unchanged. Left posterior Achilles wound healed. Diminished muscular strength 4-5 the left lower extremity. Patient able to do uble limb heel rise. Patient unable to perform single limb heel rise on the left lower extremity due to muscular weakness in the setting of Achilles tendon reconstruction. Assessment/Plan Assessment/Plan (1) Achilles tendinitis, left leg: CODE(S): M76.62 - Achilles tendinitis, left leg PLAN: Exam performed. Wound to posterior left Achilles healed. Diminished muscular strength left lower extremity. Patient has no longer any weightbearing restrictions. Prescription for physical therapy for left lower extremity ordered. Follow-up in outpatient setting for right heel pain.
[2024-03-23] VITALS (8 sets, daily range): BP systolic 106–115; BP diastolic 63–78; PULSE 74–86; RESP 16–18; TEMP 36.6–37.1; O2SAT 97–100; BMI 22.6
--- NOTE | 2024-03-23 11:16 | EKG12_ITS ---
Test Reason : PREOP Blood Pressure : / mmHG Vent. Rate : 066 BPM Atrial Rate : 066 BPM P-R Int : 138 ms QRS Dur : 096 ms QT Int : 384 ms P-R-T Axes : 058 017 050 degrees QTc Int : 402 ms Normal sinus rhythm Normal ECG No previous ECGs available Confirmed by REYNALDO PENALOZA, ERVIN ([id number]), field map editor JOÃO RICKS ([id number]) on 03/26/2024 5:55:00 PM Referred By: Blanche Flores Confirmed By:ERVIN JACOBS MD
[2024-03-23 11:25] LABS: Internal QC Validated? YES +Cl - CLEAR BKGD
[2024-03-23 11:26] LABS: Pregnancy, Urine Negative Negative
--- NOTE | 2024-03-23 11:29 | PCM.PRE.AN2 ---
ASA Classification* ASA Classification ASA Classification: 2 Assessment & Plan Anesthesia* Anesthesia Assessment Anesthesia Assessment: Discussed sedation and/or anesthesia options, risks, benefits, and alternatives with patient/parents/legal guardian/POA. Questions invited. The patient/parents/legal guardian/POA seems to understand and agrees to proceed with anesthesia plan. Reviewed the physical assessment, medical history, allergy history and patient home medications list prior to surgery/procedure/anesthetic and documented any changes. Performed airway and anesthesia risk assessments. Anesthesia Type Anesthesia Type: MAC (see written pre anesthesia record for full assessment) Anesthesia Focused Assessment* Airway Assessment Mouth opens: >3 cm Mallampati Score: II Focused Labs Anesthesia Preop lab: CBC WBC 9.6 K/mm3 (4.4-11.0) 11/15/23 21:30 RBC 4.02 M/mm3 (4.2-5.4) L 11/15/23 21:30 Hgb 11.8 g/dL (12.0-15.0) L 11/15/23 21:30 Hct 37.0 % (37-47) 11/15/23 21:30 Plt Count 389 K/mm3 (150-450) 11/15/23 21:30 CHEMISTRY Potassium 4.3 mmol/L (3.5-5.1) 11/15/23 21:30 Sodium 138 mmol/L (136-145) 11/15/23 21:30 BUN 21 mg/dL (7-18) H 11/15/23 21:30 Creatinine 0.90 mg/dL (0.55-1.02) 11/15/23 21:30 Glucose 81 mg/dL (74-106) 11/15/23 21:30 COAG Urine Test Negative Negative 03/23/24 11:20 Pre-Assessment Diagnosis/Proposed Procedure Planned Operative Procedure(s): HYSTEROSCOPY D&C IUD REMOVAL Anesthesia History 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 When Was Last Pacemaker Check QUESTION #4 FULL TEXT: You/Your Family Experience fever (hyperthermia) with Anesthesia Last Oral Intake Last Oral intake: Last Oral Intake NPO since Meds taken in AM with sips of water? Meds patient instructed to take am of surgery PONV PONV - paste mixing supervisor: PONV - paste mixing supervisor Female Yes 03/20/24 12:27 HX of Motion Sickness Yes 03/20/24 12:27 HX of N/V After Surgery No 03/20/24 12:27 Non-Smoker No 03/20/24 12:27 Duration of Surgery greater No 03/20/24 12:27 than 60 minutes Number of Risk Factors 2 03/20/24 12:27 PONV Score Moderate Risk 03/20/24 12:27 Height & Weight Height & Weight: Anesthesia: Height & Weight Height 5 ft 6 in 11/23/23 08:11 Respiratory Assessment Respiratory Assessment - paste mixing supervisor: Respiratory Tract Infection Hx - paste mixing supervisor Hx Respiratory Tract Infection No 03/20/24 12:27 STOP Sleep Apnea STOP Sleep Apnea - paste mixing supervisor: STOP Sleep Apnea - paste mixing supervisor Hx Hypertension No 03/20/24 12:27 Hx Sleep Apnea No 03/20/24 12:27 CPAP No 10/16/21 14:40 BIPAP No 06/26/21 10:36 Do you snore loudly (louder No 03/20/24 12:27 than talking or can be heard Do you often feel tired/ Yes 03/20/24 12:27 fatigued/ sleepy during daytime? Has anyone observed you stop No 03/20/24 12:27 breathing during sleep? STOP Results Negative 03/20/24 12:27 QUESTION #5 FULL TEXT : Do you snore loudly (louder than talking or can be heard through closed doors)? 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 Specify any problems Hx of Preganancy in last 3 No 03/20/24 12:27 Months Nurse Filling Out Transfusion DSCHRIBER 03/20/24 12:27 & Questions: Date: 03/20/24 03/20/24 12:27 Time: 12:03/20/24 12:27 Patient unable to answer at this time (ie. confused, unrespo /Reproduction History /Reproductive History - paste mixing supervisor: /Reproductive Hx- paste mixing supervisor Hx Now No 03/20/24 12:27 Gestational Age (in weeks): EDC: Hx Hx Para Hx Section SAB No 03/20/24 12:27 [facility] Medical History History of steroid therapy Syncope History of stress test Wears glasses History of Mohs micrographic surgery for skin cancer Cancer Depression Anxiety Arthritis Fatty liver Injury of head and neck Back pain History of ulceration Gastric reflux Prince esophagus Vapes nicotine containing substance Shortness of breath on exertion History of pain when walking Encounter for insertion of mirena IUD bladder sling Home Medications ?Medication ?Instructions ?Recorded ?Last Taken ?Type bupropion HCl 300 mg 24 hr tablet, 300 mg PO BID 05/15/20 10/16/21 10:15 History extended release lorazepam 0.5 mg tablet 0.5 mg PO DAILY PRN Anxiety 05/15/20 10/16/21 10:15 History spironolactone 50 mg tablet 50 mg PO BID 05/15/20 10/16/21 10:15 History cholecalciferol (vitamin D3) 125 125 mcg PO DAILY 10/14/21 Unknown History mcg (5,000 unit) tablet (Vitamin D3) lamotrigine 25 mg tablet (Lamictal) 25 mg PO BID 06/10/22 Unknown History duloxetine 60 mg capsule,delayed 60 mg PO DAILY 03/20/24 Unknown History release lisdexamfetamine 40 mg capsule 40 mg PO DAILY 03/20/24 Unknown History (Vyvanse) Allergy/AdvReac Type Severity Reaction Status Date / Time No Known Allergies Allergy Verified 03/20/24 12:23 Family History Mother Diabetes Father MVP (mitral valve prolapse) Grandmother Cancer Surgical History Hx of Achilles tendon repair Hx of gastric bypass Hx of hernia repair Hx of esophagogastroduodenoscopy History of cholecystectomy History of tonsillectomy Social History household members: spouse and children housing: house Smoking Status: Current every day smoker tobacco type: cigarettes and smokeless tobacco what type of physical activity do you participate in: none do you feel safe at home: Yes Review of Systems (Anesthesia) ROS Narrative System reviewed and no additional complaints, except as documented.
[2024-03-23 12:04] LABS: Hematocrit 37.5 % (37-47); Hemoglobin 12.8 g/dL (12.0-15.0); Mean Corp Hgb Conc 34.1 g/dL (32-36); Mean Corpuscular Hgb 30.5 pg (27.0-32.0); Mean Corpuscular Volume 89.5 fL (81-99); Mean Platelet Vol. 9.5 fl (6.2-12.0); Platelet Count 335 K/mm3 (150-450); RBC Distribution Width CV 12.2 % (11.6-14.6); RBC Distribution Width SD 39.8 fl (35.1-43.9); Red Blood Count 4.19 M/mm3 (4.2-5.4); White Blood Count 9.3 K/mm3 (4.4-11.0)
--- NOTE | 2024-03-23 12:35 | EMB_PTH ---
PATHOLOGY RESULTS PATIENT: FLO GERARD LOC: [facility] [place] U#:[id number] AGE/SX: 54/F ROOM: RE03/23/[address]: Dr. Blanche Flores DO : 1970 BED: DIS: 03/23/2024 SPEC #: [id number] RECD: 03/23/24 13:48 STATUS: GEORGETTE REJudith #: [id number] NURIA: 03/23/24 12:[address]: Blanche Flores DEPT: SURGICAL PATHOLOGY RECD BY: Tony Pruett ENTERED: 03/23/24 14:37 SP TYPE: ENDOM BX/C ROOPA DR: Dr. Donavan Lopes DO Tissues: Endometrium, NOS Procedures: Surgery Specimen Level IV HEADER OPERATION: Endometrial biopsy PRE-OP DIAGNOSIS: Stenotic cervix TISSUE SUBMITTED: Endometrial biopsy MICROSCOPIC DIAGNOSIS Endometrium, biopsy: Scant strips of benign superficial squamous and glandular mucosa. AM.mr 03/24/2024 MICROSCOPIC DESCRIPTION Slides are reviewed. GROSS DESCRIPTION Received in fixative is one container labeled with the patient's name and designated Endometrial biopsy. The specimen consists of multiple irregular fragments of bolivar-pink soft tissue mixed with mucoid tissue that in aggregate measure 2.5 x 0.5 x 0.1 cm. The specimen is totally submitted in one cassette. 03/23/2024 TC:5 CPT:32872
[2024-03-23] MEDS: Lidocaine 1% /Epi 1:100 (20ml) 20 ML Vial (13:26)
--- NOTE | 2024-03-23 13:35 | DCINST_ITS ---
Discharge Instructions Diet Discharge Diet: No restrictions Activity Discharge Activity: May Drive (once you are more than 24 hours out from surgery) and May Shower (once you are more than 24 hours out from surgery) Return to work on:: 03/27/24 May resume sexual activity in: 1 week (nothing in the vagina and no soaking in water for 1 week) Ice area for (Minutes): 15 Weight Bearing Status: Weight bearing as tolerated Lifting Restrictions: none Additional Activity Instructions:: You will have cramping and light bleeding/spotting that can last a few days to 1-2 weeks. Use a heating pad as needed. Do not soak in water, do not use tampons, and do not have intercourse for 1 week. I confirmed with anesthesia that you are okay to continue your Vyvanse with the anesthetic you were given. Dressing / Incision Call your doctor if you observe: Fever of 101 or Higher, Coldness, Increased Pain, Numbness or Tingling, Change in Color, Inability to urinate, Inability to have a bowel movement, Using more than 1 pad per hour, Shortness of breath, Dizziness, Fainting spells, Swelling in the ankles, Chest pain, Prolonged hiccupping, Increased palpitations (irregular heartbeat), Calf discomfort and Uncontrolled pain Cleanse incision/area with: Soap & Water Follow Up Care Please Follow Up With: Blanche Flores DO When: 1-2 weeks post op Test Results: Test results from this visit will be discussed in further detail at your follow- up appointment, if applicable. Discharge Plan Admission Primary Reason for Your Visit: surgery Attending Provider: Blanche Flores Primary Care Provider: Donavan Lopes Instructions Print Language: Guyanese Discharge Orders/Prescriptions Prescriptions: Continued bupropion HCl 300 mg tablet extended release 24 hr 300 mg PO BID lorazepam 0.5 mg tablet 0.5 mg PO DAILY PRN (Reason: Anxiety) Patient Comments: take 1/2 to 1 tablet by mouth once daily if needed for ANXIETY ATTACKS spironolactone 50 mg tablet 50 mg PO BID lamotrigine [Lamictal] 25 mg tablet 25 mg PO BID cholecalciferol (vitamin D3) [Vitamin D3] 125 mcg (5,000 unit) Tablet 125 mcg PO DAILY lisdexamfetamine [Vyvanse] 40 mg capsule 40 mg PO DAILY duloxetine 60 mg capsule,delayed release(DR/EC) 60 mg PO DAILY Referrals / Follow Up: Donavan Lopes DO [Primary Care Provider] - Disposition Disposition (needs filled in before D/C Order can be placed): Home, Self Care
--- NOTE | 2024-03-23 13:40 | PCM.POST.ANE ---
Anesthesia: Postop Eval I Current Vital Signs Temperature: 98.5 F Pulse Rate: 82 Blood Pressure: 107/77 Respiratory Rate: 16 Pulse Ox: 97 Oxygen Delivery Method: Room Air Assessment Airway patent: Yes Spontaneous unlabored respirations: Yes Mental status: Awake and Calm nausea: No Vomiting: No Anesthesia Complication: No Fluid Hydration Crystalloid volume administer (ml): 10 Total IV fluid infused: 10 Progress Note Anesthesia document: Postop Eval 1 completed: Yes
--- NOTE | 2024-03-23 13:53 | POSTOPAN2_ITS ---
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 Spontaneous unlabored Yes 03/23/24 13:42 BOOT AND SADDLE REPAIR [email or web address] respirations Mental status Awake,Calm 03/23/24 13:42 BOOT AND SADDLE REPAIR PERSON.[email or web address] nausea No 03/23/24 13:42 BOOT AND SADDLE REPAIR PERSON.[email or web address] Vomiting No 03/23/24 13:42 BOOT AND SADDLE REPAIR [email or web address].LUKE Anesthesia Postop Eval I: Fluid Summary Crystalloid volume administer 10 03/23/24 13:42 BOOT AND SADDLE REPAIR PERSON.[email or web address] (ml) Colloids volume administered ( ml) Blood Product volume administered (ml) Total IV fluid infused 10 03/23/24 13:42 BOOT AND SADDLE REPAIR [email or web address].LUKE Anesthesia Postop Eval I: Summary Notes Anesthesia Complication No 03/23/24 13:42 BOOT AND SADDLE REPAIR [email or web address].LUKE Anesthesia Complication Comment: Post-operative progress note Anesthesia: Postop Eval II Evaluation Mental status: Awake Pain Level: 0 nausea: No Vomiting: No
--- NOTE | 2024-03-23 13:53 | PCM.POSTANE2 ---
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 Spontaneous unlabored Yes 03/23/24 13:42 GIS WEB [email or web address] respirations Mental status Awake,Calm 03/23/24 13:42 GIS WEB [email or web address].[email or web address] nausea No 03/23/24 13:42 GIS WEB DEVELOPER.[email or web address] Vomiting No 03/23/24 13:42 GIS WEB [email or web address] Anesthesia Postop Eval I: Fluid Summary Crystalloid volume administer 10 03/23/24 13:42 GIS WEB [email or web address].[email or web address] (ml) Colloids volume administered ( ml) Blood Product volume administered (ml) Total IV fluid infused 10 03/23/24 13:42 GIS WEB [email or web address].LUKE Anesthesia Postop Eval I: Summary Notes Anesthesia Complication No 03/23/24 13:42 GIS WEB [email or web address].LUKE Anesthesia Complication Comment: Post-operative progress note Anesthesia: Postop Eval II Evaluation Mental status: Awake Pain Level: 0 nausea: No Vomiting: No
--- NOTE | 2024-03-23 13:53 | PCM.OPRPT ---
Problems Associated Problem List Diagnoses (1) Retained intrauterine contraceptive device (IUD): Operative Report (Standard) Operative Information Surgery/Procedure Performed: EUA, cervical dilation, IUD removal, endometrial sampling Surgeon: Blanche Flores Date of Procedure: 03/23/24 Procedure Start Time: 13:23 Procedure Stop Time: 13:32 Pre-Operative Diagnosis: Retained IUD, cervical stenosis, elevated FSH Post-Operative Diagnosis: As above Select all DRAINS/GRAFTS/IMPLANTS that apply: None Type of Anesthesia: MAC Special Medications: None Estimated Blood Loss: < 20 mL Fluids Replaced: See anesthesia record Specimen collected: Yes Description of specimen(s) removed: Endometrial sampling Description of surgery: Patient was taken to the OR where MAC anesthesia was induced. She was prepped and draped in dorsal lithotomy position with yellow fin stirrups. A weighted speculum was placed in the vagina to expose the cervix. The anterior lip of the cervix was grasped with a single tooth tenaculum. The cervix was serially dilated after injection of 10 cc local circumferentially within the cervix. Polyp forceps were used on two attempts to grasp the IUD, and the IUD was easily removed with gentle traction and noted to be intact. Endometrial biopsy was performed and endometrial sampling was sent to pathology for review. A hysteroscopy was not performed given shortage of normal saline. All instruments were removed and bleeding hemostatic. A vaginal sweep was performed. The patient was taken to the recovery room in stable condition. 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
== END 2024-03-23 14:26 | disposition home or self-care (01) ==
LOC: SDC 11:05 → AC 11:06
PROVIDERS: PCP Student in an Organized Health Care Education/Training Program; Referring Provider Obstetrics & Gynecology; Visit Provider Obstetrics & Gynecology
PROC: 0UDB8ZZ Extraction of Endometrium, Via Natural or Artificial Opening Endoscopic (ICD-10-PCS; CPT 58558; principal; 2024-03-23 12:20)
DX: Z30.432 Encounter for removal of intrauterine contraceptive device (principal); N88.2 Stricture and stenosis of cervix uteri; M76.62 Achilles tendinitis, left leg; F41.9 Anxiety disorder, unspecified; F32.A Depression, unspecified; Z79.899 Other long term (current) drug therapy; Z87.891 Personal history of nicotine dependence
CPT/HCPCS: 58301; 58100; 00940; 81025; 85027; 86850; 86900; 86901; 88305; 93005; A4216; J2405